=== PATIENT | male | born 1975 | race Hispanic/Latino ===

== ENCOUNTER 2017-04-08 11:39 | Emergency (ER) | payer OTHER ==
[2017-04-08 11:57] VITALS: BMI 46.1
[2017-04-08 12:03] VITALS: RESP 18; TEMP 98.5; O2SAT 96
[2017-04-08] MEDS ORDERED: Metoprolol 1 mg/ml Inj IVP STA (12:45)
--- NOTE | 2017-04-08 13:03 | ED PDOC ---
Arrival/HPI - General Chief Complaint: Headache Time Seen by Provider: 04/08/17 12:42 Historian: Patient - History of Present Illness Narrative History of Present Illness (Text): 04/08/17 12:24 41 year old male, with no history of migraines, presents to the Emergency department complaining of a headache for a couple of months. Patient reports he noticed his blood pressure was elevated since he began having headaches. Yesterday, his blood pressure was 201/138 and this morning is was 171/121. Patient also reports experiencing chest pain and tingling in left arm last night for 10 seconds. Patient also complains of chills, blurry vision, dizziness , and trouble keeping balance while walking. patient had a stress test done four days ago but has not yet received the results. Patient denies any neck pain , shortness of breath, nausea, vomiting, diarrhea, urinary symptoms, back pain, or any other complaints. Time/Duration: > month Symptom Onset: Gradual Symptom Course: Unchanged Context: Home Past Medical History - Provider Review Nursing Documentation Reviewed: Yes - Infectious Disease Hx of Infectious Diseases: None - Tetanus Immunization Tetanus Immunization: Unknown - Cardiac Hx Hypertension: Yes - Pulmonary Hx Tuberculosis: No - Neurological HX Cerebrovascular Accident: No Hx Seizures: No - HEENT Other/Comment: central serious retnopathy - Hematological/Oncological Hx Cancer: No - Genitourinary/Gynecological Hx Sexually Transmitted Diseases: No - Psychiatric Hx Anxiety: Yes Hx Depression: No Hx Emotional Abuse: No Hx Physical Abuse: No Hx Substance Use: No - Surgical History Other/Comment: spinal fusion c5-c7 (04/12/13) - Anesthesia Hx Anesthesia: Yes Hx Anesthesia Reactions: No Hx Malignant Hyperthermia: No - Suicidal Assessment Feels Threatened In Home Enviroment: No Family/Social History - Physician Review Nursing Documentation Reviewed: Yes Family/Social History: Unknown Family HX Smoking Status: Light Smoker < 10 Cigarettes Daily Hx Alcohol Use: Yes Frequency of alcohol use: Socially Hx Substance Use: No Hx Substance Use Treatment: No Allergies/Home Meds Allergies/Adverse Reactions: Allergies No Known Allergies Allergy (Verified 04/08/17 11:57) Home Medications: Home Meds Medication Instructions Recorded Confirmed Aspirin [Aspirin Chewable] 81 mg PO DAILY 04/04/17 04/08/17 DULoxetine [Cymbalta] 60 mg PO DAILY 04/04/17 04/08/17 Metoprolol Tartrate [Lopressor] 50 mg PO DAILY 04/04/17 04/08/17 Omeprazole 40 mg PO DAILY 04/04/17 04/08/17 Tramadol HCl [Ultram] 50 mg PO Q6H PRN 04/04/17 04/08/17 Review of Systems - Physician Review All systems were reviewed & negative as marked: Yes - Review of Systems Constitutional: Night Sweats Eyes: Vision Changes (blurry vision) Respiratory: absent: SOB Cardiovascular: Chest Pain Gastrointestinal: absent: Diarrhea, Nausea, Vomiting Musculoskeletal: absent: Neck Pain Neurological: Headache, Dizziness, Gait Changes Physical Exam Vital Signs Reviewed: Yes Vital Signs Temp Pulse Resp BP Pulse Ox 04/08/17 14:07 77 150/92 H 04/08/17 13:51 89 18 150/82 96 04/08/17 12:03 170/99 H 04/08/17 12:02 98.5 F 95 H 18 165/112 H 96 Temperature: Afebrile Blood Pressure: Hypertensive Pulse: Regular Respiratory Rate: Normal Appearance: Positive for: Well-Appearing, Non-Toxic, Comfortable, Other (obese) Pain Distress: None Mental Status: Positive for: Alert and Oriented X 3 - Systems Exam Head: Present: Atraumatic, Normocephalic Pupils: Present: PERRL Extroacular Muscles: Present: EOMI Neck: Present: Normal Range of Motion Respiratory/Chest: Present: Clear to Auscultation, Good Air Exchange. No: Respiratory Distress, Accessory Muscle Use Abdomen: Present: Normal Bowel Sounds. No: Tenderness, Distention, Peritoneal Signs, Mass/Organomegaly Lower Extremity: Present: Edema (bilateral trace pitting pedal edema) Neurological: Present: GCS=15, CN II-XII Intact, Speech Normal Psychiatric: Present: Alert, Oriented x 3, Normal Insight, Normal Concentration Medical Decision Making ED Course and Treatment: 04/08/17 12: 36 Impression: 41 year old male presents to the Emergency department complaining of headache and hypertension. Differential Diagnosis included but are not limited to: Hypertension induced headache Plan: -- CT scan of head without contrast -- EKG -- Labs -- Metoprolol -- IV fluids -- Reassess and disposition Progress Notes: 04/08/17 14:48 After IV Metoprolol, patient's repeat blood pressure is 150/92. Patient's headache is moderately improved, will give Tramadol and discharge. 04/08/17 14:[address] scan is negative. Lab work is overall normal, including negative Troponin, normal renal function, and no evidence of end organ damage. - Lab Interpretations Lab Results: 04/08/17 13:59 04/08/17 13:59 Lab Results 04/08/17 13:59: Sodium 141, Potassium 3.4 L, Chloride 104, Carbon Dioxide 31, Anion Gap 10, BUN 11, Creatinine 0.7 L, Est GFR ( Amer) > 60, Est GFR ( Non-Af Amer) > 60, Random Glucose 90, Calcium 8.6, Total Bilirubin 0.5, AST 65 H , ALT 87 H, Alkaline Phosphatase 65, Troponin I < 0.01, Total Protein 7.3, Albumin 4.1, Globulin 3.3, Albumin/Globulin Ratio 1.3 04/08/17 13:59: WBC 10.6, RBC 4.70, Hgb 13.2 L, Hct 40.9 L, MCV 87.0, MCH 28.1, MCHC 32.3, RDW 14.0, Plt Count 269, MPV 9.7, Gran % 62.5, Lymph % (Auto) 24.1, Stewart % (Auto) 4.7, Eos % (Auto) 8.1 H, Baso % (Auto) 0.6, Gran # 6.59 H, Lymph # 2.6, Stewart # 0.5, Eos # 0.9 H, Baso # 0.06 - RAD Interpretation Radiology Orders: 04/08/17 12:44 HEAD W/O CONTRAST [CT] Stat - Medication Orders Current Medication Orders: Discontinued Medications Metoprolol Tartrate (Lopressor) 5 mg IVP STAT STA Stop: 04/08/17 12:46 Last Admin: 04/08/17 14:07 Dose: 5 mg IVP Administration Document 04/08/17 14:07 OCS (Rec: 04/08/17 14:07 OCS [facility] [id number]) Charges for Administration # of IVP Administrations 1 MAR Pulse and Blood Pressure Document 04/08/17 14:07 OCS (Rec: 04/08/17 14:07 OCS [facility] [id number]) Pulse Pulse Rate (60-90) 77 Blood Pressure Blood Pressure (100/60-150/90) 150/92 Tramadol HCl (Ultram) 50 mg PO STAT STA Stop: 04/08/17 14:59 Last Admin: 04/08/17 15:15 Dose: 50 mg MAR Pain Assessment Document 04/08/17 15:15 OCS (Rec: 04/08/17 15:23 [place] [facility] [place] [facility] [id number] Pain Reassessment Is this a pain reassessment? Yes Sleep Is patient sleeping during reassessment? No Presence of Pain Presence of Pain Yes Pain Scale Used Pain Scale Used Numeric Location Pain Location Body Reducing System Operator Description Description Constant Intensity of Pain at present 7 - Scribe Statement The provider has reviewed the documentation as recorded by the Scribe Ruslan Painter All medical record entries made by the Scribe were at my direction and personally dictated by me. I have reviewed the chart and agree that the record accurately reflects my personal performance of the history, physical exam, medical decision making, and the department course for this patient. I have also personally directed, reviewed, and agree with the discharge instructions and disposition. Disposition/Present on Arrival - Present on Arrival Any Indicators Present on Arrival: No History of DVT/PE: No History of Uncontrolled Diabetes: No Urinary Catheter: No History of Decub. Ulcer: No History Surgical Site Infection Following: None - Disposition Have Diagnosis and Disposition been Completed?: Yes Diagnosis: Headache Disposition: HOME/ ROUTINE Disposition Time: 22:43 Patient Plan: Discharge Condition: GOOD Discharge Instructions (ExitCare): Hypertension (ED) Print Language: SERBIAN Additional Instructions: recheck BP in next 1 week Referrals: [facility] [place] [facility] [place] - Follow up with primary Forms: [employer] (Ukrainian)
--- NOTE | 2017-04-08 13:37 | CT ---
PROCEDURE: CT HEAD WITHOUT CONTRAST. HISTORY: ALICIA,elevated BP COMPARISON: None available. TECHNIQUE: Axial computed tomography images were obtained through the head/brain without intravenous contrast. Radiation dose: Total exam DLP = 846 mGy-cm. This CT exam was performed using one or more of the following dose reduction techniques: Automated exposure control, adjustment of the mA and/or kV according to patient size, and/or use of iterative reconstruction technique. FINDINGS: HEMORRHAGE: No intracranial hemorrhage. BRAIN: No mass effect or edema. No atrophy or chronic microvascular ischemic changes. VENTRICLES: Unremarkable. No hydrocephalus. CALVARIUM: Unremarkable. PARANASAL SINUSES: Unremarkable as visualized. No significant inflammatory changes. MASTOID AIR CELLS: Unremarkable as visualized. No inflammatory changes. OTHER FINDINGS: None. IMPRESSION: No acute findings
[2017-04-08 14:08] VITALS: BP 150/92; PULSE 77
[2017-04-08 14:13] LABS: BASO # 0.06 K/mm3 (0.0-2.0); BASO % 0.6 % (0.0-3.0); EOS # 0.9 (0.0-0.7); EOS % 8.1 % (1.5-5.0); GRAN # 6.59 (1.4-6.5); GRAN % 62.5 % (50.0-68.0); HEMOGLOBIN 13.2 g/dL (14.0-18.0); LYMPH # 2.6 (1.2-3.4); LYMPH % 24.1 % (22.0-35.0); MEAN CORPUSCULAR HEMOGLOBIN 28.1 pg (25.0-35.0); MEAN CORPUSCULAR HGB CONC 32.3 g/dl (31.0-37.0); MEAN PLATELET VOLUME 9.7 fl (7.0-11.0); MONO # 0.5 (0.1-0.6); MONO % 4.7 % (1.0-6.0); RBC 4.7 10^6/uL (3.5-6.1); WHITE BLOOD COUNT 10.6 10^3/ul (4.5-11.0)
[2017-04-08 14:23] LABS: ALB/GLOB RATIO 1.3 (1.1-1.8); ALBUMIN 4.1 g/dL (3.0-4.8); ALT/SGPT 87 U/L (7-56); AST/SGOT 65 U/L (17-59); BLOOD UREA NITROGEN 11 mg/dL (7-21); CALCIUM 8.6 mg/dL (8.4-10.5); GFR AFRICAN-AMERICAN > 60; GFR NON-AFRICAN AMERICAN > 60
[2017-04-08 14:34] LABS: TROPONIN I < 0.01 ng/mL
--- NOTE | 2017-04-08 17:37 | CARD ---
APPROVED REPORT EKG Measurement Heart [id number] <Conclusion> Normal sinus rhythm Normal ECG
== END 2017-04-08 15:15 | disposition home or self-care (01) ==
LOC: ED 11:39
DX: R51 Headache (principal); I10 Essential (primary) hypertension; F17.210 Nicotine dependence, cigarettes, uncomplicated

== ENCOUNTER 2018-02-01 21:44 | Observation (INO) | payer MEDICAID ==
[2018-02-01 21:45] VITALS: BMI 46.1
[2018-02-01] MEDS ORDERED: Sodium Chloride 0.9% 1,000 ML IV STA (23:05)
--- NOTE | 2018-02-01 23:07 | ED PDOC ---
Arrival/HPI <Carlton Doyle - Last Filed: 02/02/18 02:01> - History of Present Illness Narrative History of Present Illness (Text): 02/02/18 00:17 This is a 42 year old male with PMH of rectal fissure 5 years ago, HTN who presents with bright red blood per rectum tonight. Pt states that he had painless bright red blood per rectum which started at approximately 830 pm tonight and lasted about 20-30 minutes. Pt reports that he has had diffuse abdominal pain for the past few months, and bowel movements that contain "clear isaac liquid" at the end of defecation for the past 6 months. Pt also reports li ghtheadedness and dizziness for the past few months, with episodes of fainting approximately every night. Pt states that these symptoms have been worsening over the past few months. Denies recent travel, eating any new foods, association with food, v/d, dysuria, penile discharge. PMD: Suzette Myles Nephrology: [facility] PMH: rectal fissure 5 years ago, HTN PSH: rectal fissure repair 5 years ago, carpal tunnel repair 10 years ago, ACDF 5 years ago in c5-c7 Meds: see MAR Allx: NKDA Social hx: (+) smoking history, (+) etoh, (-) illicit drug use Sexual hx: 1 female partner in the past 6 months, does not use protection. Time/Duration: > month Symptom Onset: Gradual Symptom Course: Worsening <Val Rodriguezriy - Last Filed: 02/02/18 03:48> - General Chief Complaint: GI Problem Time Seen by Provider: 02/01/18 21:51 Past Medical History - Provider Review Nursing Documentation Reviewed: Yes - Infectious Disease Hx of Infectious Diseases: None - Tetanus Immunization Tetanus Immunization: Unknown - Cardiac Hx Cardiac Arrhythmia: Yes Hx Hypertension: Yes - Pulmonary Hx Tuberculosis: No - Neurological HX Cerebrovascular Accident: No Hx Seizures: No - HEENT Other/Comment: central serious retnopathy - Hematological/Oncological Hx Cancer: No - Musculoskeletal/Rheumatological Hx Back Pain: Yes Other/Comment: Spinaly surgery - Gastrointestinal Other/Comment: anal fissure - Genitourinary/Gynecological Hx Genitourinary Disorders: No Hx Sexually Transmitted Diseases: No - Psychiatric Hx Anxiety: Yes Hx Depression: No Hx Emotional Abuse: No Hx Physical Abuse: No Hx Substance Use: No - Surgical History Other/Comment: spinal fusion c5-c7 (04/12/13) - Anesthesia Hx Anesthesia: Yes Hx Anesthesia Reactions: No Hx Malignant Hyperthermia: No - Suicidal Assessment Feels Threatened In Home Enviroment: No <Louis Rodriguez Last Filed: 02/02/18 03:48> Family/Social History - Physician Review Nursing Documentation Reviewed: Yes Family/Social History: Unknown Family HX Smoking Status: Light Smoker < 10 Cigarettes Daily Hx Alcohol Use: Yes Hx Substance Use: No Hx Substance Use Treatment: No <Louis Rodriguez - Last Filed: 02/02/18 03:48> Allergies/Home Meds <Carlton Doyle - Last Filed: 02/02/18 02:01> <Louis Rodriguez Last Filed: 02/02/18 03:48> Allergies/Adverse Reactions: Allergies No Known Allergies Allergy (Verified 02/01/18 22:09) Home Medications: Home Meds Medication Instructions Recorded Confirmed Aspirin [Aspirin Chewable] 81 mg PO DAILY 04/04/17 04/08/17 DULoxetine [Cymbalta] 60 mg PO DAILY 04/04/17 04/08/17 Metoprolol Tartrate [Lopressor] 50 mg PO DAILY 04/04/17 04/08/17 Omeprazole 40 mg PO DAILY 04/04/17 04/08/17 Tramadol HCl [Ultram] 50 mg PO Q6H PRN 04/04/17 04/08/17 Review of Systems - Review of Systems Constitutional: Fatigue Eyes: Vision Changes Respiratory: SOB Cardiovascular: Chest Pain Gastrointestinal: Abdominal Pain, Stool Changes Genitourinary Male: Frequency Musculoskeletal: Arthralgias Skin: Rash (to the hands, which pmd is managing) Neurological: Dizziness Psychiatric: Depression <Louis Rodriguez - Last Filed: 02/02/18 03:48> Physical Exam Vital Signs Temp Pulse Resp BP Pulse Ox 02/02/18 01:38 96 H 19 122/82 98 02/01/18 22:05 98.4 F 109 H 18 116/79 96 <Carlton Doyle - Last Filed: 02/02/18 02:01> Vital Signs Temp Pulse Resp BP Pulse Ox 02/01/18 22:05 98.4 F 109 H 18 116/79 96 Temperature: Afebrile Blood Pressure: Normal Pulse: Tachycardic Respiratory Rate: Normal Appearance: Positive for: Non-Toxic Pain Distress: None Mental Status: Positive for: Alert and Oriented X 3 - Systems Exam Head: Present: Atraumatic, Normocephalic, Tenderness (mild tenderness to the right frontal scalp) Pupils: Present: PERRL Extroacular Muscles: Present: EOMI Conjunctiva: Present: Other (pallor) Mouth: Present: Moist Mucous Membranes Neck: Present: Normal Range of Motion Respiratory/Chest: Present: Clear to Auscultation. No: Respiratory Distress, Accessory Muscle Use, Wheezes, Rhonchi Cardiovascular: Present: Normal S1, S2, Tachycardic Abdomen: Present: Distention. No: Tenderness, Peritoneal Signs, Rebound, Guarding Rectal: Present: Occult Blood, Gross Blood (small amount of brb on glove), Hemorrhoids (external, nonbleeding), Normal Rectal Tone. No: Rectal Tenderness (discomfort on rectal examination), Fissures Genitourinary Male: Present: Normal External Genitalia. No: Penile Discharge, Testicle Tenderness, Penile Swelling, Masses, Erythema, Testicle Swelling Upper Extremity: Present: Normal Inspection, NORMAL PULSES Lower Extremity: Present: Edema (trace bilateral lower extremity edema), NORMAL PULSES. No: CALF TENDERNESS Neurological: Present: GCS=15, CN II-XII Intact, Motor Func Grossly Intact Skin: Present: Warm, Dry Psychiatric: Present: Alert, Oriented x 3 <Louis Rodriguez - Last Filed: 02/02/18 03:48> Medical Decision Making ED Course and Treatment: 02/02/18 01:59 42 y/o M presenting with sever rectal bleeding. In agreement with resident note, which includes further HPI details. Patient was seen and evaluated with resident, came up with plan and treatment together. - Lab Interpretations Lab Results: 02/01/18 22:21 02/01/18 22:21 Lab Results 02/01/18 22:21: PT 11.1, INR 0.97, APTT 28.2 02/01/18 22:21: Sodium 138, Potassium 4.2, Chloride 100, Carbon Dioxide 25, Anion Gap 17, BUN 21, Creatinine 0.9, Est GFR ( Amer) > 60, Est GFR (Non- Af Amer) > 60, Random Glucose 123 H, Calcium 9.9, Phosphorus 3.8, Magnesium 1.5 L, Total Bilirubin 0.3, AST 112 H D, ALT 125 H, Alkaline Phosphatase 61, Total Protein 7.5, Albumin 4.4, Globulin 3.1, Albumin/Globulin Ratio 1.4 02/01/18 22:21: WBC 11.7 H, RBC 4.64, Hgb 12.7 L, Hct 38.8 L, MCV 83.6 D, MCH 27.4, MCHC 32.7, RDW 14.4, Plt Count 376, MPV 10.0, Gran % 76.0 H, Lymph % (Auto) 18.5 L, Bryan % (Auto) 5.2, Eos % (Auto) 0.1 L, Baso % (Auto) 0.2, Gran # 8.90 H, Lymph # (Auto) 2.2, Bryan # (Auto) 0.6, Eos # (Auto) 0.0, Baso # (Auto) 0.02 - RAD Interpretation Narrative RAD Interpretations (Text): 02/02/18 01:58 CT of the abdomen and pelvis with contrast Clinical statement: Rectal bleeding. Technique: Multiple axial CT images were obtained from the base of the lungs through the floor of the pelvis utilizing 5 mm axial slices after administration of nonionic intravenous contrast. Coronal and sagittal reconstructions were also obtained. Comparison: None. Findings: Chest: The visualized lung bases are clear. Abdomen: The liver, spleen, pancreas, kidneys, gallbladder, and adrenal glands are unremarkable. The aorta is within normal limits. There is no evidence of abdominal lymphadenopathy or ascites. Pelvis: Mild fluid distention small bowel is noted with mild bowel wall thickening. The colon is unremarkable, with no obstructive or inflammatory changes. The appendix is normal. The urinary bladder is within normal limits. The other pelvic structures appear grossly intact. There is no evidence of pelvic lymphadenopathy or ascites. Bones: There are no suspicious osseous abnormalities seen. Impression: 1. The rectosigmoid colon appears grossly unremarkable. No evidence of bowel obstruction. 2. Mild small bowel enteritis. Electronically signed on Feb 02, 2018 1:56:17 AM EDT by: Trevor Juarez M.D., Certified by SONJA, MSK, Neuroradiology Radiology Orders: 02/02/18 00:15 ABDOMEN & PELVIS [ABD & PELVIS IV CONTRAST ONLY] [CT] Stat Travel Guide: Radiologist - Medication Orders Current Medication Orders: Discontinued Medications Sodium Chloride (Sodium Chloride 0.9%) 1,000 mls @ 999 mls/hr IV .Q1H1M STA Stop: 02/02/18 00:05 Last Admin: 02/02/18 00:06 Dose: 999 mls/hr eMAR Start Stop Document 02/02/18 00:06 RD (Rec: 02/02/18 00:06 RD [id number]) Intravenous Solution Start Date 02/02/18 Start Time 00:06 End Date 02/02/18 End time 01:06 Total Infusion Time 60 Sodium Chloride (Sodium Chloride 0.9%) 1,000 mls @ 999 mls/hr IV .Q1H1M STA Stop: 02/02/18 01:15 Magnesium Sulfate/Dextrose (Magnesium Sulfate 1 Gm/100 Ml D5w) 1 gm in 100 mls @ 100 mls/hr IVPB ONCE ONE Stop: 02/02/18 01:15 Last Admin: 02/02/18 01:39 Dose: 100 mls/hr eMAR Start Stop Document 02/02/18 01:39 RD (Rec: 02/02/18 01:40 RD [id number]) Intravenous Solution Start Date 02/02/18 Start Time 01:40 End Date 02/02/18 End time 02:40 Total Infusion Time 60 Metoclopramide HCl (Reglan) 10 mg IVP STAT STA Stop: 02/01/18 23:02 Last Admin: 02/02/18 00:04 Dose: 10 mg IVP Administration Document 02/02/18 00:04 RD (Rec: 02/02/18 00:06 RD [id number]) Charges for Administration # of IVP Administrations 1 Pantoprazole Sodium (Protonix Inj) 40 mg IVP STAT STA Stop: 02/01/18 23:01 Last Admin: 02/02/18 00:06 Dose: 40 mg IVP Administration Document 02/02/18 00:06 RD (Rec: 02/02/18 00:06 RD [id number]) Charges for Administration # of IVP Administrations 1 <Carlton Doyle - Last Filed: 02/02/18 02:01> ED Course and Treatment: 02/01/18 23:06 hemoocult positive. Reglan 10 mg IVP for nausea, NS IVF 1L bolus x2. CBC, CMP, coags. 02/02/18 00:[address] yMles, who will accept the pt. Pt placed NPO. Dr. Myles requests GI consult, Dr. Donohue. Abdominal CT with IV contrast ordered. - Lab Interpretations I have reviewed the lab results: Yes - Medication Orders Current Medication Orders: Discontinued Medications Metoclopramide HCl (Reglan) 10 mg IVP STAT STA Stop: 02/01/18 23:02 Pantoprazole Sodium (Protonix Inj) 40 mg IVP STAT STA Stop: 02/01/18 23:01 <Louis Rodriguez - Last Filed: 02/02/18 03:48> - PA / SCREEN PRINTING PASTER / Resident Statement MD/ has reviewed & agrees with the documentation as recorded. MD/ has examined the patient and agrees with the treatment plan. - Scribe Statement The provider has reviewed the documentation as recorded by the Varun Hale All medical record entries made by the Rickeyibian were at my direction and personally dictated by me. I have reviewed the chart and agree that the record accurately reflects my personal performance of the history, physical exam, medical decision making, and the department course for this patient. I have also personally directed, reviewed, and agree with the discharge instructions and disposition. <Carlton Doyle - Last Filed: 02/02/18 02:01> Disposition/Present on Arrival <Carlton Doyle - Last Filed: 02/02/18 02:01> - Present on Arrival Any Indicators Present on Arrival: No History of DVT/PE: No History of Uncontrolled Diabetes: No Urinary Catheter: No History of Decub. Ulcer: No History Surgical Site Infection Following: None - Disposition Have Diagnosis and Disposition been Completed?: Yes Disposition Time: 00:25 Patient Plan: Observation <Louis Rodriguez - Last Filed: 02/02/18 03:48> - Disposition Diagnosis: Gastrointestinal bleed Disposition: HOSPITALIZED Condition: GUARDED
[2018-02-01 23:17] LABS: BASO # 0.02 K/mm3 (0.0-2.0); BASO % 0.2 % (0.0-3.0); EOS % 0.1 % (1.5-5.0); GRAN # 8.9 (1.4-6.5); HEMOGLOBIN 12.7 g/dL (14.0-18.0); LYMPH # 2.2 (1.2-3.4); LYMPH % 18.5 % (22.0-35.0); MEAN CELL VOLUME 83.6 fl (80.0-105.0); MEAN CORPUSCULAR HEMOGLOBIN 27.4 pg (25.0-35.0); MEAN CORPUSCULAR HGB CONC 32.7 g/dl (31.0-37.0); MONO # 0.6 (0.1-0.6); MONO % 5.2 % (1.0-6.0); RBC 4.64 10^6/uL (3.5-6.1); RED CELL DISTRIBUTION WIDTH 14.4 % (11.5-14.5); WHITE BLOOD COUNT 11.7 10^3/uL (4.5-11.0)
[2018-02-01 23:24] LABS: INR 0.97; PARTIAL THROMBOPLASTIN TIME 28.2 Seconds (25.1-36.5); PROTHROMBIN TIME 11.1 SECONDS (9.4-12.5)
[2018-02-01 23:39] LABS: ALB/GLOB RATIO 1.4 (1.1-1.8); ALBUMIN 4.4 g/dL (3.0-4.8); ALT/SGPT 125 U/L (7-56); AST/SGOT 112 U/L (17-59); BLOOD UREA NITROGEN 21 mg/dL (7-21); CALCIUM 9.9 mg/dL (8.4-10.5); GFR NON-AFRICAN AMERICAN > 60
[2018-02-02] MEDS ORDERED: Sodium Chloride 0.9% 1,000 ML IV STA (00:15)
[2018-02-02] MEDS ORDERED: Magnesium Sulfate 1 gm in D5W 1 GM/100 ML BAG IVPB ONE (00:16)
[2018-02-02] MEDS ORDERED: Influenza Vaccine 60 mcg/0.5 mL SYR (4YR UP) IM ONE (02:40)
[2018-02-02] MEDS ORDERED: Pneumococcal 23-Valent Vaccine IM ONE (02:40)
--- NOTE | 2018-02-02 08:08 | CP.PCM.CON ---
<Steve Horn Kathia - Last Filed: 02/02/18 11:35> History of Present Illness - History of Present Illness History of Present Illness: PGY-2 GI consult note for Dr Donohue. Mr Nance is a 42 year old male with PMHx of rectal fissure 5 years ago, HTN who presents with bright red blood per rectum. Pt states that he had painless bright red blood per rectum which started at approximately 830 pm tonight and lasted about 20-30 minutes. He stated he was lying in bed and when he got up he noticed the sheets were covered in blood. Pt reports that he has had diffuse abdominal pain for the past few months, and bowel movements that contain "clear isaac liquid" at the end of defecation for the past 6 months. Pt also reports lightheadedness and dizziness for the past few months. Pt states that these symptoms have been worsening over the past few months. Also endorsed arthralgias for past 6 months. Had an appt with director of sustainability, Dr Greer today. Denies recent travel, eating any new foods, association with food, v/d, dysuria, penile discharge. PMD: Suzette Myles Nephrology: [facility] PMH: rectal fissure 5 years ago, HTN PSH: rectal fissure repair 5 years ago (colonoscopy at that time in [facility]), carpal tunnel repair 10 years ago, ACDF 5 years ago in c5-c7 Meds: see MAR Allx: NKDA Social hx: (+) smoking history, (+) etoh, (-) illicit drug use Sexual hx: 1 female partner in the past 6 months, does not use protection. FamHx: strong cancer hx - mother with pancreatic cancer, father with unknown can cer, grandparents with cancer Code Status: Full Code Review of Systems - Constitutional Constitutional: Fatigue, Headache, Lethargy. absent: Chills, Fever - EENT Eyes: absent: Change in Vision - Cardiovascular Cardiovascular: absent: Chest Pain, Chest Pain with Activity - Respiratory Respiratory: absent: Cough, Dyspnea, Hemoptysis - Gastrointestinal Gastrointestinal: Abdominal Pain, Change in Bowel Habits, Diarrhea, Hematochezia, Nausea. absent: Hematemesis - Genitourinary Genitourinary: absent: Dysuria - Musculoskeletal Musculoskeletal: Neck Pain - Neurological Neurological: Dizziness, Weakness Past Patient History - Infectious Disease Hx of Infectious Diseases: None - Tetanus Immunizations Tetanus Immunization: Unknown - Past Social History Smoking Status: Light Smoker < 10 Cigarettes Daily - CARDIAC Hx Cardia Arrhythmia: Yes Hx Hypertension: Yes - PULMONARY Hx Tuberculosis: No - NEUROLOGICAL HX Cerebrovascular Accident: No Hx Seizures: No - HEENT Other/Comment: central serious retnopathy - HEMATOLOGICAL/ONCOLOGICAL Hx Cancer: No - MUSCULOSKELETAL/RHEUMATOLOGICAL Hx Back Pain: Yes Other/Comment: Spinaly surgery - GASTROINTESTINAL Other/Comment: anal fissure - GENITOURINARY/GYNECOLOGICAL Hx Genitourinary Disorders: No Hx Sexually Transmitted Disorders: No - PSYCHIATRIC Hx Anxiety: Yes Hx Depression: No Hx Emotional Abuse: No Hx Physical Abuse: No Hx Substance Use: No - SURGICAL HISTORY Other/Comment: spinal fusion c5-c7 (04/12/13) - ANESTHESIA Hx Anesthesia: Yes Hx Anesthesia Reactions: No Hx Malignant Hyperthermia: No Meds Allergies/Adverse Reactions: Allergies Allergy/AdvReac Type Severity Reaction Status Date / Time No Known Allergies Allergy Verified 02/01/18 22:09 Physical Exam - Constitutional Appears: Well, Non-toxic, No Acute Distress - Head Exam Head Exam: ATRAUMATIC, NORMAL INSPECTION - Eye Exam Eye Exam: EOMI, Normal appearance, PERRL. absent: Scleral icterus - ENT Exam ENT Exam: Mucous Membranes Moist - Neck Exam Neck exam: Positive for: Normal Inspection. Negative for: Tenderness - Respiratory Exam Respiratory Exam: Clear to Auscultation Bilateral. absent: Rales, Rhonchi, Wheezes - Cardiovascular Exam Cardiovascular Exam: REGULAR RHYTHM, +S1, +S2. absent: JVD, Systolic Murmur - GI/Abdominal Exam GI & Abdominal Exam: Normal Bowel Sounds, Soft. absent: Distended, Firm, Guarding, Hernia, Tenderness - Rectal Exam Additional comments: Performed in ED by ED resident: Occult Blood, Gross Blood (small amount of brb on glove), Hemorrhoids (external, nonbleeding), Normal Rectal Tone - Extremities Exam Extremities exam: Positive for: normal inspection. Negative for: calf tenderness - Neurological Exam Neurological exam: Alert, Oriented x3 - Skin Skin Exam: Normal Color, Warm Results - Vital Signs Recent Vital Signs: Last Vital Signs Temp 98.4 F 02/01/18 22:05 Pulse 96 H 02/02/18 01:38 Resp 20 02/02/18 02:12 BP 122/82 02/02/18 01:38 Pulse Ox 98 02/02/18 01:38 - Labs Result Diagrams: 02/02/18 10:30 02/01/18 22:21 Labs: Laboratory Results - last 24 hr 02/01/18 02/01/18 02/01/18 22:21 22:21 22:21 WBC 11.7 H RBC 4.64 Hgb 12.7 L Hct 38.8 L MCV 83.6 D MCH 27.4 MCHC 32.7 RDW 14.4 Plt Count 376 MPV 10.0 Gran % 76.0 H Lymph % (Auto) 18.5 L Luna % (Auto) 5.2 Eos % (Auto) 0.1 L Baso % (Auto) 0.2 Gran # 8.90 H Lymph # (Auto) 2.2 Luna # (Auto) 0.6 Eos # (Auto) 0.0 Baso # (Auto) 0.02 PT 11.1 INR 0.97 APTT 28.2 Sodium 138 Potassium 4.2 Chloride 100 Carbon Dioxide 25 Anion Gap 17 BUN 21 Creatinine 0.9 Est GFR ( Amer) > 60 Est GFR (Non-Af Amer) > 60 Random Glucose 123 H Calcium 9.9 Phosphorus 3.8 Magnesium 1.5 L Total Bilirubin 0.3 AST 112 H D ALT 125 H Alkaline Phosphatase 61 Total Protein 7.5 Albumin 4.4 Globulin 3.1 Albumin/Globulin Ratio 1.4 Assessment & Plan - Assessment and Plan (Free Text) Plan: Mr Nance is a 42 year old male with PMH of rectal fissure 5 years ago, HTN who presents with bright red blood per rectum: Hematochezia -hemoccult positive -hgb 12.7 on admission -CT abd/pelvis w/ iv contrast: * 1. The rectosigmoid colon appears grossly unremarkable. No evidence of bowel obstruction. 2. Mild small bowel enteritis. -f/u hepatits panel -protonix 40mg ivp q12h -plan for EGD today -keep npo for now Prior GI procedures: -colonoscopy 5 years ago in [facility] Case discussed with Dr Donohue. <Bianka Donohue V - Last Filed: 02/02/18 23:01> Meds - Medications Medications: Current Medications Acetaminophen/Butalbital/Caffeine (Fioricet) 1 tab PO DAILY [facility] Alprazolam (Xanax) 1 mg PO TID [facility] Amlodipine Besylate (Norvasc) 10 mg PO DAILY [facility] Last Admin: 02/02/18 17:44 Dose: 10 mg Ascorbic Acid (Vitamin C 500 Mg Tab) 500 mg PO DAILY [facility] Last Admin: 02/02/18 17:44 Dose: 500 mg Bisacodyl (Dulcolax) 10 mg PO ONCE ONE Stop: 02/03/18 18:01 Duloxetine HCl (Cymbalta) 60 mg PO HS [facility] Last Admin: 02/02/18 21:32 Dose: 60 mg Home Med (Home Med) 1 unit PO DAILY [facility] Magnesium Oxide (Mag-Ox) 400 mg PO DAILY [facility] Last Admin: 02/02/18 17:44 Dose: 400 mg Nicotine (Nicoderm Cq) 1 patch TD DAILY [facility] Last Admin: 02/02/18 22:24 Dose: 1 patch Oxycodone HCl (Oxycodone Immediate Release Tab) 20 mg PO TID PRN PRN Reason: Pain, severe (8-10) Last Admin: 02/02/18 20:34 Dose: 20 mg Pantoprazole Sodium (Protonix Ec Tab) 40 mg PO DAILY [facility] Last Admin: 02/02/18 12:17 Dose: Not Given Polyethylene Glycol/Electrolytes (Golytely) 4,000 ml PO ONCE ONE Stop: 02/03/18 14:01 Quetiapine Fumarate (Seroquel) 50 mg PO HS [facility] Last Admin: 02/02/18 21:33 Dose: 50 mg Zolpidem Tartrate (Ambien) 10 mg PO HS PRN; Protocol PRN Reason: Insomnia Last Admin: 02/02/18 22:24 Dose: 10 mg Results - Vital Signs Recent Vital Signs: Last Vital Signs Temp 98.4 F 02/02/18 22:35 Pulse 94 H 02/02/18 22:35 Resp 18 02/02/18 22:35 BP 151/99 H 02/02/18 22:35 Pulse Ox 96 02/02/18 22:35 - Labs Result Diagrams: 02/02/18 10:30 02/01/18 22:21 Labs: Laboratory Results - last 24 hr 02/01/18 02/01/18 02/01/18 22:21 22:21 22:21 WBC 11.7 H RBC 4.64 Hgb 12.7 L Hct 38.8 L MCV 83.6 D MCH 27.4 MCHC 32.7 RDW 14.4 Plt Count 376 MPV 10.0 Gran % 76.0 H Lymph % (Auto) 18.5 L Luna % (Auto) 5.2 Eos % (Auto) 0.1 L Baso % (Auto) 0.2 Gran # 8.90 H Lymph # (Auto) 2.2 Luna # (Auto) 0.6 Eos # (Auto) 0.0 Baso # (Auto) 0.02 PT 11.1 INR 0.97 APTT 28.2 Sodium 138 Potassium 4.2 Chloride 100 Carbon Dioxide 25 Anion Gap 17 BUN 21 Creatinine 0.9 Est GFR ( Amer) > 60 Est GFR (Non-Af Amer) > 60 Random Glucose 123 H Calcium 9.9 Phosphorus 3.8 Magnesium 1.5 L Total Bilirubin 0.3 AST 112 H D ALT 125 H Alkaline Phosphatase 61 Total Protein 7.5 Albumin 4.4 Globulin 3.1 Albumin/Globulin Ratio 1.4 Hepatitis A IgM Ab Hep Bs Antigen Hep B Core IgM Ab Hepatitis C Antibody Blood Type Antibody Screen BBK History Checked 02/02/18 02/02/18 02/02/18 08:45 10:30 10:30 WBC RBC Hgb 11.7 L Hct 36.1 L MCV MCH MCHC RDW Plt Count MPV Gran % Lymph % (Auto) Luna % (Auto) Eos % (Auto) Baso % (Auto) Gran # Lymph # (Auto) Luna # (Auto) Eos # (Auto) Baso # (Auto) PT INR APTT Sodium Potassium Chloride Carbon Dioxide Anion Gap BUN Creatinine Est GFR ( Amer) Est GFR (Non-Af Amer) Random Glucose Calcium Phosphorus Magnesium Total Bilirubin AST ALT Alkaline Phosphatase Total Protein Albumin Globulin Albumin/Globulin Ratio Hepatitis A IgM Ab Negative Hep Bs Antigen Negative Hep B Core IgM Ab Negative Hepatitis C Antibody Negative Blood Type A POSITIVE Antibody Screen Negative BBK History Checked Patient has bt Attending/Attestation - Attestation I have personally seen and examined this patient.: Yes I have fully participated in the care of the patient.: Yes I have reviewed all pertinent clinical information: Yes Notes (Text): This is an addendum to GI consult report dictated by the Facilities Project Manager.The patient was seen and evaluated earlier. Medical records, lab studies, imagings were reviewed. Last 24 hours events reviewed. Agreed with the above treatment plan as outlined in Facilities Project Manager 's notes with the addition of the following Admitted with bleeding per rectum On examination patient also had tenderness in the epigastric area Followup on hb for EGD today informed consent was obtained for EGD 02/02/18 23:01
--- NOTE | 2018-02-02 09:59 | CT ---
Date of service: 02/02/2018 PROCEDURE: CT Abdomen and Pelvis with and without intravenous contrast HISTORY: rectal bleeding, white count COMPARISON: None. TECHNIQUE: Axial images of the abdomen were obtained in the pre contrast, portal venous and delayed phases of enhancement. Coronal and sagittal reformats were generated. Contrast dose: Radiation dose: Total exam DLP = 2198.21 mGy-cm. This CT exam was performed using one or more of the following dose reduction techniques: Automated exposure control, adjustment of the mA and/or kV according to patient size, and/or use of iterative reconstruction technique. FINDINGS: LOWER THORAX: Unremarkable. LIVER: Fatty liver. 5 millimeter enhancing focus in the right hepatic lobe likely representing a tiny arteriovenous malformation. GALLBLADDER AND BILE DUCTS: Unremarkable. PANCREAS: Unremarkable. No gross lesion or ductal dilatation. SPLEEN: Unremarkable. ADRENALS: Unremarkable. No mass. KIDNEYS AND URETERS: Small measuring up to 11 millimeters. Probable left renal cysts. No hydronephrosis. No solid mass. VASCULATURE: Unremarkable. No aortic aneurysm. No aortic atherosclerotic calcification or mural plaque present. BOWEL: Unremarkable. No obstruction. No gross mural thickening. APPENDIX: Normal appendix. PERITONEUM: Unremarkable. No free fluid. No free air. LYMPH NODES: Unremarkable. No enlarged lymph nodes. BLADDER: Unremarkable. REPRODUCTIVE: Unremarkable. BONES: No acute fracture. OTHER FINDINGS: None. IMPRESSION: No acute pathology.
[2018-02-02 10:41] LABS: HEMOGLOBIN 11.7 g/dL (14.0-18.0)
[2018-02-02] MEDS ORDERED: BUTALBITAL PO SCH (12:00)
[2018-02-02] MEDS: Pantoprazole 40 mg EC Tab PO SCH (12:17)
[2018-02-02] MEDS ORDERED: Sodium Chloride 0.9% 1,000 ML IV SCH (14:30)
[2018-02-02] MEDS ORDERED: Propofol 10 mg/ml Inj (20 ML) ONE ×2 (15:03→15:41)
[2018-02-02] MEDS: Magnesium Oxide 400 mg Tab UD PO SCH (17:44)
[2018-02-02 18:24] LABS: HEPATITIS B SURFACE AG Negative (NEGATIVE)
[2018-02-02 18:30] LABS: HEPATITIS A IGM NEGATIVE (NEGATIVE); HEPATITIS B CORE AB NEGATIVE (NEGATIVE)
[2018-02-02 18:42] LABS: HEPATITIS C ANTIBODY NEGATIVE (NEGATIVE)
[2018-02-02] MEDS: oxyCODONE 20 mg Immediate Release Tab PO PRN (20:34)
[2018-02-03 07:58] LABS: HEMOGLOBIN 12.8 g/dL (14.0-18.0); MEAN CELL VOLUME 84.3 fl (80.0-105.0); MEAN CORPUSCULAR HEMOGLOBIN 27.5 pg (25.0-35.0); MEAN CORPUSCULAR HGB CONC 32.6 g/dl (31.0-37.0); MEAN PLATELET VOLUME 9.5 fl (7.0-11.0); RBC 4.66 10^6/uL (3.5-6.1); RED CELL DISTRIBUTION WIDTH 14.5 % (11.5-14.5); WHITE BLOOD COUNT 8.4 10^3/uL (4.5-11.0)
[2018-02-03 08:16] LABS: ALB/GLOB RATIO 1.3 (1.1-1.8); ALBUMIN 3.7 g/dL (3.0-4.8); ALT/SGPT 91 U/L (7-56); AST/SGOT 52 U/L (17-59); BLOOD UREA NITROGEN 16 mg/dL (7-21); CALCIUM 9.1 mg/dL (8.4-10.5); GFR NON-AFRICAN AMERICAN > 60
[2018-02-03] MEDS: Apap-Butalbital-Caffeine 325-50-40mg Tab PO SCH (09:43)
[2018-02-03] MEDS: Magnesium Oxide 400 mg Tab UD PO SCH (09:44)
[2018-02-03] MEDS: Pantoprazole 40 mg EC Tab PO SCH (09:45)
[2018-02-03] MEDS: oxyCODONE 20 mg Immediate Release Tab PO PRN ×3 (09:53→22:39)
[2018-02-03] MEDS ORDERED: DICLOFENAC PO SCH (10:00)
--- NOTE | 2018-02-03 13:20 | HP ---
HISTORY OF PRESENT ILLNESS: The patient is a 42-year-old male who presented to the emergency room with bright red blood per rectum. The patient has a history of anal fissures and internal hemorrhoids, however, never in the past has he experienced sudden onset of bright red blood per rectum without attempting defecation. The patient states he was normally just walking around and felt moist and noted bright red blood, therefore presented to the emergency room. PAST MEDICAL HISTORY: He is known to have a history of anxiety and depression in the past. He has a history of internal hemorrhoids, rectal fissure, hypertension which has been difficult to manage recently. He complains of job stress. He is status post back surgery. SOCIAL HISTORY: He smokes 1-2 packs of cigarettes a day. Drinks alcohol occasionally, is single but lives with a girlfriend. ALLERGIES: HE HAS NO KNOWN MEDICAL ALLERGIES. MEDICATIONS: Include aspirin 81 mg a day, Cymbalta 60 mg daily, metoprolol tartrate 50 mg daily, omeprazole 40 mg and tramadol 50 mg p.o. every 6 hours p.r.n. REVIEW OF SYSTEMS: Otherwise unremarkable. PHYSICAL EXAMINATION: VITAL SIGNS: His blood pressure is 116/79, heart rate is 109 and he is afebrile at 98.4 degrees Fahrenheit. GENERAL: He is awake, alert and oriented. Examination of the head, eyes, ears, nose and throat is unremarkable. NECK: Supple with no lymphadenopathy, no goiter. LUNGS: Clear to auscultation and percussion. HEART: Regular. No murmur is appreciated. ABDOMEN: Soft, nontender. No organomegaly is appreciated. Rectal exam is positive for gross blood. EXTREMITIES: Free of cyanosis, clubbing or edema. NEUROLOGICAL: The patient is awake, alert and oriented with no focal neurological signs. LABORATORY STUDIES: Show the white blood cell count to be 11.7, hemoglobin and hematocrit are 12.7 and 38.8, platelet count is 376. Serum chemistries are unremarkable with a sodium of 138, potassium 4.2, BUN 21, creatinine 0.9, glucose is 123. CAT scan of the abdomen was performed, which was unremarkable. So the patient is admitted with bright red blood per rectum, active GI bleed. Consultation from Dr. Donohue is requested. The patient will be reevaluated in the morning. Of note, the patient was seen by Dr. Donohue and underwent esophagogastroduodenoscopy, which showed erosive gastritis and duodenitis with Ramos's esophagitis. His hemoglobin dropped from 12.7 on admission to 11.7 the following morning, therefore, arrangements were made for him to undergo colonoscopy on 02/04/2018. Sergei Myles MD
--- NOTE | 2018-02-03 13:51 | CP.PCM.PN ---
<Phil Dyer - Last Filed: 02/03/18 14:12> Subjective - Date & Time of Evaluation Date of Evaluation: 02/03/18 Time of Evaluation: 13:00 - Subjective Subjective: PGY-4 GI Fellow Consult Note Pt sitting up in bed when seen today. States 1 episode of BRBPR. No abd pain, nor melena. Eager for colon prep. 5 point ROS negative other than stated above Objective - Vital Signs/Intake and Output Vital Signs (last 24 hours): Temp Pulse Resp BP Pulse Ox 97.6 F 82 20 139/92 H 95 02/03/18 08:03 02/03/18 08:03 02/03/18 08:03 02/03/18 09:44 02/03/18 08:03 - Medications Medications: Current Medications Acetaminophen/Butalbital/Caffeine (Fioricet) 1 tab PO DAILY [facility] Last Admin: 02/03/18 09:43 Dose: 1 tab Alprazolam (Xanax) 1 mg PO TID [facility] Last Admin: 02/03/18 09:44 Dose: 1 mg Amlodipine Besylate (Norvasc) 10 mg PO DAILY [facility] Last Admin: 02/03/18 09:44 Dose: 10 mg Aripiprazole (Abilify) 2.5 mg PO [facility] Ascorbic Acid (Vitamin C 500 Mg Tab) 500 mg PO DAILY [facility] Last Admin: 02/03/18 09:45 Dose: 500 mg Bisacodyl (Dulcolax) 10 mg PO ONCE ONE Stop: 02/03/18 18:01 Duloxetine HCl (Cymbalta) 40 mg PO DAILY [facility] Last Admin: 02/03/18 12:25 Dose: 40 mg Home Med (Home Med) 1 unit PO DAILY [facility] Last Admin: 02/03/18 12:25 Dose: 1 unit Magnesium Oxide (Mag-Ox) 400 mg PO DAILY [facility] Last Admin: 02/03/18 09:44 Dose: 400 mg Nicotine (Nicoderm Cq) 1 patch TD DAILY [facility] Last Admin: 02/03/18 09:43 Dose: 1 patch Oxycodone HCl (Oxycodone Immediate Release Tab) 20 mg PO TID PRN PRN Reason: Pain, severe (8-10) Last Admin: 02/03/18 09:53 Dose: 20 mg Pantoprazole Sodium (Protonix Ec Tab) 40 mg PO DAILY [facility] Last Admin: 02/03/18 09:45 Dose: 40 mg Polyethylene Glycol/Electrolytes (Golytely) 4,000 ml PO ONCE ONE Stop: 02/03/18 14:01 Venlafaxine HCl (Effexor) 37.5 mg PO DAILY [facility] Last Admin: 02/03/18 12:25 Dose: 37.5 mg Zaleplon (Sonata) 5 mg PO HS PRN PRN Reason: Insomnia - Labs Labs: 02/03/18 07:40 02/03/18 07:40 PT 11.1 SECONDS (9.4-12.5) 02/01/18 22:21 INR 0.97 02/01/18 22:21 APTT 28.2 Seconds (25.1-36.5) 02/01/18 22:21 - Constitutional Appears: Well, No Acute Distress - Head Exam Head Exam: ATRAUMATIC, NORMAL INSPECTION - Eye Exam Eye Exam: EOMI. absent: Scleral icterus - ENT Exam ENT Exam: Mucous Membranes Moist, Normal External Ear Exam. absent: Mucous Membranes Dry - Respiratory Exam Respiratory Exam: NORMAL BREATHING PATTERN. absent: Accessory Muscle Use, Respiratory Distress - GI/Abdominal Exam GI & Abdominal Exam: Soft, Normal Bowel Sounds. absent: Bruit, Distended, Firm, Guarding, Rigid, Tenderness, Hernia, Mass, Organomegaly Assessment and Plan - Assessment and Plan (Free Text) Assessment: 42 year old male with PMH of rectal fissure 5 years ago, HTN who presents with bright red blood per rectum: # Painless Hematochezia: Perhaps related to diverticulosis, hemorrhoid or AVMs. CT abd/pelvis w/ IV contrast with mild enteritis and no signs of large mass. EGD with no source of bleed, only with possible Forrest's and gastritis. 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 On PPI. Biopsies pending. Plan: - CSPY on 02/04/18 --- Risks, benefits, alternatives discussed with pt who wishes to proceed. --- Consent signed and in chart -Clear Liq Diet today -Golytely prep tonight -NPO except meds after midnight -Cont PO PPI daily -F/u EGD path results Case discussed with Dr Donohue. See attestation for further recs/changes. <Jayde,Kopadmini V - Last Filed: 02/04/18 00:24> Objective - Vital Signs/Intake and Output Vital Signs (last 24 hours): Temp Pulse Resp BP Pulse Ox 98.4 F 100 H 18 136/98 H 95 02/03/18 23:07 02/03/18 23:07 02/03/18 23:07 02/03/18 23:07 02/03/18 23:07 Intake and Output: 02/03/18 02/04/18 18:59 06:59 Intake Total 600 Balance 600 - Medications Medications: Current Medications Acetaminophen/Butalbital/Caffeine (Fioricet) 1 tab PO DAILY [facility] Last Admin: 02/03/18 09:43 Dose: 1 tab Alprazolam (Xanax) 1 mg PO TID [facility] Last Admin: 02/03/18 17:41 Dose: 1 mg Amlodipine Besylate (Norvasc) 10 mg PO DAILY [facility] Last Admin: 02/03/18 09:44 Dose: 10 mg Aripiprazole (Abilify) 2.5 mg PO [facility] Last Admin: 02/03/18 21:35 Dose: 2.5 mg Ascorbic Acid (Vitamin C 500 Mg Tab) 500 mg PO DAILY [facility] Last Admin: 02/03/18 09:45 Dose: 500 mg Duloxetine HCl (Cymbalta) 40 mg PO DAILY [facility] Last Admin: 02/03/18 12:25 Dose: 40 mg Home Med (Home Med) 1 unit PO TID [facility] Last Admin: 02/03/18 17:42 Dose: 1 unit Magnesium Oxide (Mag-Ox) 400 mg PO DAILY [facility] Last Admin: 02/03/18 09:44 Dose: 400 mg Nicotine (Nicoderm Cq) 1 patch TD DAILY [facility] Last Admin: 02/03/18 09:43 Dose: 1 patch Oxycodone HCl (Oxycodone Immediate Release Tab) 20 mg PO TID PRN PRN Reason: Pain, severe (8-10) Last Admin: 02/03/18 22:39 Dose: 20 mg Pantoprazole Sodium (Protonix Ec Tab) 40 mg PO DAILY [facility] Last Admin: 02/03/18 09:45 Dose: 40 mg Venlafaxine HCl (Effexor) 37.5 mg PO DAILY [facility] Last Admin: 02/03/18 12:25 Dose: 37.5 mg Zaleplon (Sonata) 5 mg PO HS PRN PRN Reason: Insomnia - Labs Labs: 02/03/18 07:40 02/03/18 07:40 PT 11.1 SECONDS (9.4-12.5) 02/01/18 22:21 INR 0.97 02/01/18 22:21 APTT 28.2 Seconds (25.1-36.5) 02/01/18 22:21 Attending/Attestation - Attestation I have personally seen and examined this patient.: Yes I have fully participated in the care of the patient.: Yes I have reviewed all pertinent clinical information, including history, physical exam and plan: Yes Notes (Text): This is an addendum to GI progress report dictated by the GI Fellow.The patient was seen and examined earlier. Medical records, lab studies, imagings were reviewed. Last 24 hours events reviewed. Agreed with the above treatment plan as outlined in GI Fellow 's notes with the addition of the following No further episodes of significant bleeding Status post EGD On examination soft non-tender Patient is being prepared for colonoscopy in AM 02/04/18 00:20
[2018-02-03] MEDS ORDERED: Peg-Electrolyte Oral Soln 4L (Golytely) PO ONE (14:00)
[2018-02-03] MEDS: DICLOFENAC SODIUM 50 MG PO SCH (17:42)
[2018-02-03] MEDS ORDERED: Bisacodyl 5mg EC Tab PO ONE (18:00)
[2018-02-04 00:56] LABS: TROPONIN I < 0.01 ng/mL
[2018-02-04 00:59] LABS: ALB/GLOB RATIO 1.3 (1.1-1.8); ALT/SGPT 95 U/L (7-56); AST/SGOT 57 U/L (17-59); BLOOD UREA NITROGEN 12 mg/dL (7-21); CALCIUM 9.1 mg/dL (8.4-10.5); GFR NON-AFRICAN AMERICAN > 60
--- NOTE | 2018-02-04 05:00 | CON ---
DATE: 02/03/2018 HISTORY OF PRESENT ILLNESS: In short, the patient is a 42-year-old male with reported history of depression. The patient was admitted on the medical site for evaluation of lower GI bleed. Psych consult was called for evaluation of depressive symptoms and the patient requested to talk to psychiatrist in order to adjust medications. The patient was seen and examined today. The patient presented to be alert. The patient reported that he was prescribed Ambien last night and he was not feeling good. The patient reported that he had very vivid dreams. The patient is not aware who started Seroquel for him. The patient reported that he was on Cymbalta 60 mg for years as well as Xanax 1 mg three times a day. The patient reported that he was discharged from [facility] where he was admitted for depressive symptoms under voluntary status. Since that time, the patient was trying to find a psychiatrist to follow up. The patient reported that Dr. Jl Gimenez was not able to see him because he does not accept the patient's insurance. The patient reported that he tried to obtain a followup appointment at [facility], but they have no opening any time recently. The patient reported that he feels depressed, hopeless and helpless, but denied any thoughts of harming himself. The patient reported that he is frustrated over medical issues and he was feeling down and depressed for a while. The patient denied any previous suicidal attempts. The patient was willing to adjust his medications. MEDICATIONS: Reviewed. The patient is on Fioricet, Xanax 1 mg three times a day, and Norvasc 10 mg daily. Abilify was started 2.5 mg at nighttime for mood stabilization. Seroquel will be discontinued because of side effects profile and possible metabolic syndrome. Vitamin C. The patient is on Dulcolax. Cymbalta 40 mg will be started, 60 mg discontinued. He is on magnesium oxide, Nicoderm, oxycodone, Protonix, and Effexor will be started to 37.5 mg daily. The patient is on Sonata as needed for insomnia. PHYSICAL EXAMINATION: VITAL SIGNS: Reviewed. Temperature 97.6, pulse of 82, blood pressure 139/92, respirations 20 and oxygen saturation is 95. MENTAL STATUS EXAMINATION: The patient presented to be alert, pleasant, cooperative, and flat affect. The patient reported to feel hopeless and helpless in regards of the medical issues as well as depressed. The patient has low anergy, thought process seems to be coherent and goal directed. Thought content, the patient denied visual, auditory, or tactile hallucinations. Denied paranoid ideation. The patient does not present to be psychotic. The patient reported feeling of hopelessness and helplessness. Denied any intent or plan to kill himself. Insight and judgment seems to be improving. Impulses are well controlled. IMPRESSION: Most likely, the patient has major depressive disorder, rule out mood disorder due to general medical condition. PLAN This sba underwriter offered the patient psychiatric admission for further evaluation and stabilization, the patient feels hesitant about that, but this sba underwriter will start changing medications. The patient did not have any improvement from Cymbalta, will start Effexor, also Ambien will be discontinued. Sonata started as needed. Abilify was started. Seroquel discontinued due to metabolic profile. We will follow up and advise accordingly. The patient might greatly benefit from psych admission. We will follow up and advise accordingly. Thank you very much for letting me to participate in the care of your patient. Jolie Koo MD
[2018-02-04] MEDS: oxyCODONE 20 mg Immediate Release Tab PO PRN ×2 (08:46→20:10)
[2018-02-04] MEDS: Pantoprazole 40 mg EC Tab PO SCH (09:19)
[2018-02-04] MEDS: Magnesium Oxide 400 mg Tab UD PO SCH (09:19)
[2018-02-04] MEDS: DICLOFENAC SODIUM 50 MG PO SCH ×3 (09:20→18:39)
[2018-02-04] MEDS: Apap-Butalbital-Caffeine 325-50-40mg Tab PO SCH (09:20)
[2018-02-04 09:41] LABS: PH,URINE 7.5 (4.7-8.0); URINE BILIRUBIN NEGATIVE (NEGATIVE); URINE BLOOD NEGATIVE (NEGATIVE); URINE GLUCOSE (UA) NEGATIVE (NEGATIVE); URINE LEUKOCYTE ESTERASE NEGATIVE Leu/uL (NEGATIVE); URINE PROTEIN NEGATIVE mg/dL (<30 mg/dL); URINE UROBILINOGEN 0.2 E.U./dL (<1 E.U./dL)
[2018-02-04 09:57] LABS: URINE APPEARANCE CLEAR (CLEAR); URINE COLOR YELLOW (YELLOW)
[2018-02-04] MEDS ORDERED: Venlafaxine 75 mg ER Cap PO SCH (15:46)
[2018-02-04] MEDS ORDERED: Midazolam 2 MG/2 ML VIAL ONE (16:45)
[2018-02-04] MEDS ORDERED: Propofol 10 mg/ml Inj (20 ML) ONE ×2 (16:45→17:01)
--- NOTE | 2018-02-04 16:45 | CARD ---
APPROVED REPORT Date of service: 02/04/2018 EXAM: Two-dimensional and M-mode echocardiogram with Doppler and color Doppler. INDICATION Dyspnea Chest Pain 2D DIMENSIONS Left Atrium (2D)4.1 (1.6-4.0cm)IVSd1.5 (0.7-1.1cm) LVDd5.1 (3.9-5.9cm)PWd1.4 (0.7-1.1cm) LVDs3.4 (2.5-4.0cm)FS (%) 33.5 % LVEF (%)62.0 (>50%) M-Mode DIMENSIONS Aortic Root3.30 (2.2-3.7cm)Aortic Cusp Exc.2.40 (1.5-2.0cm) Aortic Valve AoV Peak Nuxglace533.0cm/Toya Peak GR.9mmHg Mitral Valve MV E Vashjhiw65.4cm/sMV A Xjptoaej15.7cm/sE/A ratio0.7 TDI E/Lateral E'0.0E/Medial E'0.0 Tricuspid Valve TR Peak Hsgytqps084jz/sRAP [id number] Peak Gr.17mmHg [id number] LEFT VENTRICLE The left ventricle is normal size. There is mild to moderate concentric left ventricular hypertrophy. The left ventricular function is normal. The left ventricular ejection fraction is within the normal range. There is normal LV segmental wall motion. Transmitral Doppler flow pattern is Grade I-abnormal relaxation pattern. RIGHT VENTRICLE The right ventricle is normal size. There is normal right ventricular wall thickness. The right ventricular systolic function is normal. ATRIA The left atrium is borderline dilated. The right atrium size is normal. AORTIC VALVE The aortic valve is normal in structure. No aortic regurgitation is present. There is no aortic valvular stenosis. MITRAL VALVE The mitral valve is normal in structure. There is no mitral valve regurgitation noted. There is no mitral valve stenosis. TRICUSPID VALVE The tricuspid valve is normal in structure. There is no tricuspid valve regurgitation noted. PULMONIC VALVE The pulmonary valve is normal in structure. There is trace pulmonic valvular regurgitation. GREAT VESSELS The aortic root is normal in size. PERICARDIAL EFFUSION There is no pericardial effusion. <Conclusion> The left ventricle is normal size. There is mild to moderate concentric left ventricular hypertrophy. The left ventricular function is normal. The left ventricular ejection fraction is within the normal range. There is normal LV segmental wall motion. Transmitral Doppler flow pattern is Grade I-abnormal relaxation pattern.
[2018-02-04] MEDS ORDERED: Sodium Chloride 0.9% 1,000 ML IV SCH (17:45)
[2018-02-04 18:18] VITALS: RESP 18
--- NOTE | 2018-02-04 18:31 | PN ---
DATE: 02/04/2018 SUBJECTIVE: This science writer adjusting medications for this patient. Yesterday, Seroquel was discontinued, Ambien was discontinued. Started Abilify as well as Sonata. The patient scheduled for colonoscopy today. He was feeling anxious that is why the patient reported that he was not able to fall asleep, to stay asleep. The patient reported that he tolerates discontinuation of Cymbalta well. The patient agreed to increase the dose of Effexor. Meanwhile, the patient presented the same way depressed, but denied any thoughts of harming himself or others. The patient does not want to sign himself into the Psychiatric Inpatient Unit. VITAL SIGNS: Stable. Temperature 98.3, pulse 73, blood pressure 120/65, respiration 20, oxygen saturation is 96. MEDICATIONS: Reviewed. The patient is on n.p.o. because of the procedure. LABORATORY DATA: Reviewed. Most recent was from yesterday. Chemistry also seems to be within normal limits. MENTAL STATUS EXAMINATION: The patient presented to be alert and oriented, pleasant, cooperative. Good eye contact. Speech was normal rate, tone, quality and quantity. Mood described as, "I feel depressed and anxious." Thought process was coherent and goal directed. Thought content, the patient denied visual, auditory, tactile hallucinations. Denied paranoid ideation. The patient denied thoughts of harming himself or others. Denied intent or plan. Insight and judgment seems to be improving. Impulses are well controlled. IMPRESSION: Rule out major depressive disorder, rule out mood disorder due to general medical condition. PLAN: Cymbalta was discontinued. Ambien was discontinued. Abilify 2.5 mg at the nighttime started for mood stabilization as adjunct for medications for depression. Effexor was increased to 37 mg today. Sonata 5 mg as needed for insomnia. We will follow up and advise accordingly. Admission was offered, but the patient declined that offer. We will follow up and advise tomorrow. Thank you very much for letting me participate in the care of your patient. Jolie Koo MD [facility] # [id number]
[2018-02-04 19:48] VITALS: BP 164/109; PULSE 96; TEMP 98.4; O2SAT 95
--- NOTE | 2018-02-05 08:25 | CP.PCM.PCO ---
Physician Communication Note - Physician Communication Note Physician Communication Note: pt was d/c
== END 2018-02-04 20:35 | disposition home or self-care (01) ==
LOC: ED 21:44 → ERH 02-02 00:25 → 5RNO 02-02 02:06 → 5RSO 02-03 00:15
PROVIDERS: ADMIT Internal Medicine; ATTEND Internal Medicine
DX: K92.1 Melena (principal); K31.9 Disease of stomach and duodenum, unspecified; K60.3 Anal fistula; K62.3 Rectal prolapse; K21.9 Gastro-esophageal reflux disease without esophagitis; K29.80 Duodenitis without bleeding; K64.1 Second degree hemorrhoids; K64.4 Residual hemorrhoidal skin tags; K52.9 Noninfective gastroenteritis and colitis, unspecified; I10 Essential (primary) hypertension; F32.9 Major depressive disorder, single episode, unspecified; F17.210 Nicotine dependence, cigarettes, uncomplicated; Z98.1 Arthrodesis status
CPT/HCPCS: 36415; 43239; 45378; 74177; 80053; 80074; 81003; 83735; 84100; 84484; 85014; 85018; 85025; 85027; 85610; 85730; 86039; 86430; 86850; 86900; 88305; 88312; 88342; 93306; 96361; 96365; 96375; 96376; 99285; C9113; G0378; J2001; J2250; J2704; J2765; J3010; J3475; J7030; J7040; Q9967

== ENCOUNTER 2018-03-02 20:58 | Emergency (ER) | payer MEDICAID ==
[2018-03-02 20:58] VITALS: BMI 46.1
[2018-03-02 21:29] VITALS: BP 106/71; PULSE 90; RESP 18; TEMP 98.7; O2SAT 99
[2018-03-02 22:27] LABS: BASO # 0.06 K/mm3 (0.0-2.0); BASO % 0.5 % (0.0-3.0); EOS % 7.8 % (1.5-5.0); GRAN # 7.41 (1.4-6.5); HEMOGLOBIN 12.6 g/dL (14.0-18.0); LYMPH # 3.4 (1.2-3.4); LYMPH % 27.4 % (22.0-35.0); MEAN CELL VOLUME 84.8 fl (80.0-105.0); MEAN CORPUSCULAR HEMOGLOBIN 27.7 pg (25.0-35.0); MEAN CORPUSCULAR HGB CONC 32.6 g/dl (31.0-37.0); MEAN PLATELET VOLUME 9.2 fl (7.0-11.0); MONO # 0.5 (0.1-0.6); MONO % 4.3 % (1.0-6.0); RBC 4.55 10^6/uL (3.5-6.1); RED CELL DISTRIBUTION WIDTH 15.5 % (11.5-14.5); WHITE BLOOD COUNT 12.4 10^3/uL (4.5-11.0)
--- NOTE | 2018-03-02 22:49 | ED PDOC ---
Arrival/HPI - General Chief Complaint: Lower Extremity Problem/Injury Historian: Patient - History of Present Illness Narrative History of Present Illness (Text): 03/02/18 22:43 42 year old male, whose past medical history includes hypertension, hyperlipi demia, and anal fistula, presents to the emergency department complaining of right leg pain, for 4 days. Patient states he has a burning pain from the right upper thigh to the knee. Patient also informs of numbness on and off. Patient states he takes Dilaudid at home without relief. Patient denies any focal weakness, Saddle anesthesia, trauma, abdominal pain, urinary symptoms, headache, dizziness, slurred speech, redness, fever, swelling, or any other complaints. Time/Duration: < week (4 days) Quality: Burning Past Medical History - Provider Review Nursing Documentation Reviewed: Yes - Infectious Disease Hx of Infectious Diseases: None - Tetanus Immunization Tetanus Immunization: Unknown - Cardiac Hx Pacemaker: No - Pulmonary Hx Tuberculosis: No - Neurological Hx Paralysis: No - HEENT Other/Comment: central serious retnopathy - Hematological/Oncological Hx Blood Transfusions: (PT IS UNSURE) Hx Blood Transfusion Reaction: (PT IS UNSURE) - Musculoskeletal/Rheumatological Hx Musculoskeletal Disorders: No - Gastrointestinal Other/Comment: anal fissure - Genitourinary/Gynecological Hx Genitourinary Disorders: No Hx Sexually Transmitted Diseases: No - Psychiatric Hx Emotional Abuse: No Hx Physical Abuse: No Hx Substance Use: No - Surgical History Other/Comment: spinal fusion c5-c7 (04/12/13) - Anesthesia Hx Anesthesia: Yes Hx Anesthesia Reactions: No Hx Malignant Hyperthermia: No - Suicidal Assessment Feels Threatened In Home Enviroment: No Family/Social History - Physician Review Nursing Documentation Reviewed: Yes Family/Social History: No Known Family HX Smoking Status: Light Smoker < 10 Cigarettes Daily Hx Alcohol Use: Yes Hx Substance Use: No Hx Substance Use Treatment: No Allergies/Home Meds Allergies/Adverse Reactions: Allergies zolpidem [From Ambien] Adverse Reaction (Unknown, Verified 02/04/18 16:52) .UNABLE TO MOVE REPORTS UNABLE TO MOVE FOR 3 HOURS Home Medications: Home Meds Medication Instructions Recorded Confirmed ALPRAZolam 1 mg PO DAILY 02/02/18 02/02/18 Butalbital 50 mg PO DAILY 02/02/18 02/02/18 Diclofenac 50 mg PO DAILY 02/02/18 02/02/18 Magnesium 500 mg PO DAILY 02/02/18 02/02/18 Pantoprazole 40 mg PO DAILY 02/02/18 02/02/18 Prednisone 10 mg PO DAILY 02/02/18 02/02/18 Quetiapine Fumarate 50 mg PO DAILY 02/02/18 02/02/18 RX: oxyCODONE [oxyCODONE Immediate 20 mg PO TID PRN 02/02/18 02/02/18 Release Tab] Tylenol 650 mg PO PRN PRN 02/02/18 02/02/18 Vitamin C 500 mg PO DAILY 02/02/18 02/02/18 amLODIPine 10 mg PO DAILY 02/02/18 02/02/18 Review of Systems - Physician Review All systems were reviewed & negative as marked: Yes - Review of Systems Constitutional: absent: Fevers Gastrointestinal: absent: Abdominal Pain Genitourinary Male: Normal Musculoskeletal: absent: Joint Swelling, Other (no saddle anesthesia ) Skin: absent: Other (no redness) Neurological: absent: Headache, Dizziness, Focal Weakness, Speech Changes Physical Exam Vital Signs Reviewed: Yes Vital Signs Temp Pulse Resp BP Pulse Ox 03/02/18 21:21 98.7 F 90 18 106/71 99 Temperature: Afebrile Blood Pressure: Normal Pulse: Regular Respiratory Rate: Normal Appearance: Positive for: Well-Appearing, Non-Toxic, Comfortable Pain Distress: None Mental Status: Positive for: Alert and Oriented X 3 - Systems Exam Head: Present: Atraumatic, Normocephalic Pupils: Present: PERRL Extroacular Muscles: Present: EOMI Conjunctiva: Present: Normal Mouth: Present: Moist Mucous Membranes Neck: Present: Normal Range of Motion Respiratory/Chest: Present: Clear to Auscultation, Good Air Exchange. No: Respiratory Distress, Accessory Muscle Use Cardiovascular: Present: Regular Rate and Rhythm, Normal S1, S2. No: Murmurs Abdomen: No: Tenderness, Distention, Peritoneal Signs Back: Present: Normal Inspection Upper Extremity: Present: Normal Inspection. No: Cyanosis, Edema Lower Extremity: Present: Normal Inspection, NORMAL PULSES, Normal ROM, Neurovascularly Intact. No: Edema, Tenderness, Swelling, Erythema, Temperature Abnormalties Neurological: Present: GCS=15, CN II-XII Intact, Speech Normal Skin: Present: Warm, Dry, Normal Color. No: Rashes Psychiatric: Present: Alert, Oriented x 3, Normal Insight, Normal Concentration Medical Decision Making ED Course and Treatment: 03/02/18 22:51 Impression: 42 year old male presents with right leg pain. Plan: -- Labs -- X rays right leg -- Lyrica -- US of right leg -- Reassess and disposition Prior Visits: Notes and results from previous visits were reviewed. Pt declined all imaging and lab result states he wants to sign out AMA Progress Notes: 03/02/18 22:54 This patient is choosing to leave against medical advice. I have personally explained to the patient that choosing to do so may result in permanent bodily harm or . I have discussed at great length that without further evaluation and monitoring there may be unforeseen circumstances and/or deterioration causing permanent bodily harm or as a result of their choice. The patient is alert, oriented, and shows the mental capacity to make clear decisions regarding the patients health care at this time. The patient continues to wish to leave against medical advice. In light of the patients decision to leave AMA, follow-up has been arranged and the patient is aware of the importance of following up as instructed. The patient has been advised that they should return to the ED immediately if they change their mind at any time, or if their condition begins to change or worsen in any way. - Lab Interpretations Lab Results: 03/02/18 22:15 Lab Results 03/02/18 22:15: WBC 12.4 H, RBC 4.55, Hgb 12.6 L, Hct 38.6 L, MCV 84.8, MCH 27.7, MCHC 32.6, RDW 15.5 H, Plt Count 336, MPV 9.2, Gran % 60.0, Lymph % (Auto) 27.4, Wilkes % (Auto) 4.3, Eos % (Auto) 7.8 H, Baso % (Auto) 0.5, Gran # 7.41 H, Lymph # (Auto) 3.4, Wilkes # (Auto) 0.5, Eos # (Auto) 1.0 H, Baso # (Auto) 0.06 - RAD Interpretation Radiology Orders: 03/02/18 22:26 DUPLEX LOWER EXTRM VEIN RIGHT [US] Stat 03/02/18 22:27 Femur Right [FEMUR 1 VIEW RT] [RAD] Stat - Medication Orders Current Medication Orders: Discontinued Medications Pregabalin (Lyrica) 100 mg PO ONCE STA Stop: 03/02/18 22:03 Last Admin: 03/02/18 22:23 Dose: 100 mg - Scribe Statement The provider has reviewed the documentation as recorded by the Varun De Guzman Provider Scribe Attestation: All medical record entries made by the Scribe were at my direction and personally dictated by me. I have reviewed the chart and agree that the record accurately reflects my personal performance of the history, physical exam, medical decision making, and the department course for this patient. I have also personally directed, reviewed, and agree with the discharge instructions and disposition. Disposition/Present on Arrival - Present on Arrival Any Indicators Present on Arrival: No History of DVT/PE: No History of Uncontrolled Diabetes: No Urinary Catheter: No History of Decub. Ulcer: No History Surgical Site Infection Following: None - Disposition Have Diagnosis and Disposition been Completed?: Yes Diagnosis: Leg pain Disposition: AGAINST MEDICAL ADVICE Disposition Time: 22:50 Patient Problems: Current Active Problems Problem Status Onset Leg pain Acute Condition: GOOD Referrals: Sergei Myles MD [Primary Care Provider] - Follow up with primary Forms: [employer] ([place]uan)
[2018-03-02 23:10] LABS: ALB/GLOB RATIO 1.3 (1.1-1.8); ALBUMIN 4.2 g/dL (3.0-4.8); ALT/SGPT 55 U/L (7-56); AST/SGOT 57 U/L (17-59); BLOOD UREA NITROGEN 20 mg/dL (7-21); CALCIUM 9.7 mg/dL (8.4-10.5); GFR NON-AFRICAN AMERICAN > 60
== END 2018-03-02 22:50 | disposition left against medical advice (07) ==
LOC: ED 20:58
DX: M79.604 Pain in right leg (principal); I10 Essential (primary) hypertension; E78.5 Hyperlipidemia, unspecified; F17.210 Nicotine dependence, cigarettes, uncomplicated

== ENCOUNTER 2018-04-09 08:48 | Outpatient (CLI) | payer MEDICAID | END 2018-04-09 08:49 | disposition home or self-care (01) | LOC: CARDIO 08:48 ==

== ENCOUNTER 2018-05-05 15:11 | Outpatient (CLI) | payer MEDICAID | END 2018-05-05 15:12 | disposition home or self-care (01) | LOC: RAD 15:11 ==

== ENCOUNTER 2018-07-08 10:58 | Outpatient (CLI) | payer MEDICAID | END 2018-07-08 10:59 | disposition home or self-care (01) | LOC: RAD 10:58 ==

== ENCOUNTER 2018-07-20 13:08 | Emergency (ER) | payer MEDICAID ==
[2018-07-20 14:13] VITALS: BMI 47.5
== END 2018-07-20 13:53 | disposition left against medical advice (07) ==
LOC: ED 13:08
DX: Z02.89 Encounter for other administrative examinations (principal); M54.9 Dorsalgia, unspecified

== ENCOUNTER 2018-07-20 13:58 | Emergency (ER) | payer MEDICAID ==
[2018-07-20 14:13] VITALS: BMI 47.5
[2018-07-20 14:16] VITALS: RESP 18
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
[2018-07-20 15:35] LABS: BASO # 0.05 K/mm3 (0.0-2.0); BASO % 0.6 % (0.0-3.0); EOS # 1.1 (0.0-0.7); EOS % 11.6 % (1.5-5.0); HEMOGLOBIN 11.1 g/dL (14.0-18.0); LYMPH # 3.5 (1.2-3.4); MEAN CELL VOLUME 84.6 fl (80.0-105.0); MEAN CORPUSCULAR HEMOGLOBIN 26.3 pg (25.0-35.0); MEAN CORPUSCULAR HGB CONC 31.1 g/dl (31.0-37.0); MEAN PLATELET VOLUME 10.1 fl (7.0-11.0); MONO # 0.6 (0.1-0.6); MONO % 6.4 % (1.0-6.0); RBC 4.22 10^6/uL (3.5-6.1); RED CELL DISTRIBUTION WIDTH 15.9 % (11.5-14.5)
[2018-07-20 15:40] LABS: PARTIAL THROMBOPLASTIN TIME 34.2 Seconds (26.9-38.3); PROTHROMBIN TIME 11.1 SECONDS (9.4-12.5)
[2018-07-20 15:48] LABS: ALB/GLOB RATIO 1.4 (1.1-1.8); ALBUMIN 4.1 g/dL (3.0-4.8); ALT/SGPT 40 U/L (7-56); AST/SGOT 46 U/L (17-59); BLOOD UREA NITROGEN 40 mg/dL (7-21); CALCIUM 8.8 mg/dL (8.4-10.5); GFR NON-AFRICAN AMERICAN 27; LIPASE 69 U/L (23-300)
[2018-07-20 16:04] LABS: TROPONIN I < 0.01 ng/mL
[2018-07-20] MEDS ORDERED: Sodium Chloride 0.9% 1,000 ML IV SCH (17:00)
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
[2018-07-20] MEDS ORDERED: Sodium Chloride 0.9% 1,000 ML IV STA ×2 (17:25)
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
[2018-07-20] MEDS ORDERED: Naloxone 0.4 mg/ml Inj (Adult) ONE (17:38)
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
[2018-07-20 18:27] LABS: VENOUS BLOOD GAS BASE EXCESS 1.9 mmol/L (0.0-2.0); VENOUS BLOOD GAS PO2 84 mm/Hg (30-55); VENOUS BLOOD PH 7.36 (7.32-7.43)
[2018-07-20 20:13] LABS: URINE BILIRUBIN NEGATIVE (NEGATIVE); URINE BLOOD NEGATIVE (NEGATIVE); URINE GLUCOSE (UA) NEGATIVE (NEGATIVE); URINE LEUKOCYTE ESTERASE NEGATIVE Leu/uL (NEGATIVE); URINE PROTEIN NEGATIVE mg/dL (<30 mg/dL); URINE UROBILINOGEN 0.2 E.U./dL (<1 E.U./dL)
[2018-07-20 20:16] LABS: URINE APPEARANCE CLEAR (CLEAR); URINE COLOR YELLOW (YELLOW)
[2018-07-20 20:29] LABS: BARBITURATES, UR NEGATIVE (NEGATIVE); BENZODIAZEPINES, UR POSITIVE (NEGATIVE); OPIATES, UR POSITIVE (NEGATIVE); PHENCYCLIDINE, UR NEGATIVE (NEGATIVE)
[2018-07-20 20:46] VITALS: BP 110/62; PULSE 67; TEMP 97.9; O2SAT 100
--- NOTE | 2018-07-20 21:30 | CARD ---
APPROVED REPORT Date of service: 07/20/2018 EKG Measurement Heart [id number] <Conclusion> Sinus rhythm with 1st degree AV block Otherwise normal ECG
== END 2018-07-20 20:51 | disposition home or self-care (01) ==
LOC: ED 13:58 → UNDOADMIN 18:17 → ERH 18:17
DX: I95.9 Hypotension, unspecified (principal); E78.5 Hyperlipidemia, unspecified; M54.9 Dorsalgia, unspecified; K21.9 Gastro-esophageal reflux disease without esophagitis
CPT/HCPCS: 70450; 71046; 72125; 72131; 74176; 80053; 80324; 80345; 80346; 80349; 80353; 80358; 80361; 81003; 82803; 83690; 83992; 84484; 85025; 85610; 85730; 86850; 86900; 93005; 96360; 99285; J2310; J7030

== ENCOUNTER 2018-08-10 20:50 | Inpatient (IN) | payer MEDICAID ==
[2018-08-10 21:00] VITALS: BMI 46.2
--- NOTE | 2018-08-10 21:24 | ED PDOC ---
Arrival/HPI - General Chief Complaint: Psychiatric Evaluation Time Seen by Provider: 08/10/18 20:58 Historian: Patient - History of Present Illness Narrative History of Present Illness (Text): 08/10/18 21:24 42 year old male, with a past medical history of GI bleed, depression, anxiety, hypertension, and chronic back pain secondary to herniated disc, who presents to the emergency department complaining of depression and suicidal thoughts for the past couple of days. Patient reports depression is from family issues and health problems, and states he is being evaluated for a lung mass. He endorses taking oxycodone earlier today for his chronic back pain, but denies taking any excess of the medication. He denies any chest pain, shortness of breath, fever, chills, cough, or any other complaints. PMD: Dr. Myles Time/Duration: < week Symptom Onset: Gradual Symptom Course: Unchanged Activities at Onset: Light Context: Home Past Medical History - Provider Review Nursing Documentation Reviewed: Yes Primary Care Provider: Sergei Myles - Infectious Disease Hx of Infectious Diseases: None - Tetanus Immunization Tetanus Immunization: Unknown - Cardiac Hx Hypertension: Yes - Pulmonary Hx Tuberculosis: No - Neurological Hx Paralysis: No - HEENT Other/Comment: central serious retnopathy - Hematological/Oncological Hx Blood Transfusions: (PT IS UNSURE) Hx Blood Transfusion Reaction: (PT IS UNSURE) - Musculoskeletal/Rheumatological Hx Musculoskeletal Disorders: No - Gastrointestinal Hx Gastroesophageal Reflux: Yes Other/Comment: anal fissure - Genitourinary/Gynecological Hx Genitourinary Disorders: No Hx Sexually Transmitted Diseases: No - Psychiatric Hx Anxiety: Yes Hx Depression: Yes Hx Emotional Abuse: No Hx Physical Abuse: No Hx Substance Use: No Other/Comment: SI - Surgical History Other/Comment: spinal fusion c5-c7 (04/12/13) - Anesthesia Hx Anesthesia: Yes Hx Anesthesia Reactions: No Hx Malignant Hyperthermia: No - Suicidal Assessment Feels Threatened In Home Enviroment: No Family/Social History - Physician Review Nursing Documentation Reviewed: Yes Family/Social History: Unknown Family HX Smoking Status: Light Smoker < 10 Cigarettes Daily Hx Alcohol Use: Yes Hx Substance Use: No Hx Substance Use Treatment: No Allergies/Home Meds Allergies/Adverse Reactions: Allergies zolpidem [From Ambien] Adverse Reaction (Unknown, Verified 08/10/18 21:00) .UNABLE TO MOVE REPORTS UNABLE TO MOVE FOR 3 HOURS Home Medications: Home Meds Medication Instructions Recorded Confirmed Aripiprazole [Abilify] 2 mg PO DAILY 04/09/18 08/10/18 Diclofenac Sodium [Voltaren] 50 mg PO QID 04/09/18 08/10/18 cloNIDine [clonidine HCl] 2 tab PO BID 04/09/18 08/10/18 ALPRAZolam [Xanax] 1 mg PO PRN PRN 07/20/18 08/10/18 Furosemide [Lasix] 40 mg PO BID 07/20/18 08/10/18 Gabapentin [Neurontin] 300 mg PO TID 07/20/18 08/10/18 Metoprolol Tartrate [Lopressor] 1 tab PO BID 07/20/18 08/10/18 Pantoprazole Sodium [Protonix] 40 mg PO BID 07/20/18 08/10/18 Quetiapine Fumarate [Seroquel] 50 mg PO DAILY 07/20/18 08/10/18 Ranitidine HCl [Acid Customer Response Representative] 2 tab PO DAILY 07/20/18 08/10/18 Venlafaxine [Effexor] 150 mg PO DAILY 07/20/18 08/10/18 amLODIPine [Norvasc] 10 mg PO DAILY 07/20/18 08/10/18 oxyCODONE [oxyCODONE Immediate 30 mg PO QID 07/20/18 08/10/18 Release Tab] Ascorbic Acid [Vitamin C] 1 tab PO DAILY 08/10/18 08/10/18 Cetirizine HCl [All Day Allergy 1 tab PO DAILY 08/10/18 08/10/18 Relief] Ferrous Sulfate [Feosol] 1 tab PO DAILY 08/10/18 08/10/18 Loratadine/Pseudoephedrine 1 tab PO DAILY 08/10/18 08/10/18 [Claritin-D 24 Hour Tablet] Sennosides [Veronica-Jackeline] 2 tab PO HS 08/10/18 08/10/18 Review of Systems - Physician Review All systems were reviewed & negative as marked: Yes - Review of Systems Constitutional: absent: Fevers Respiratory: absent: SOB, Cough Cardiovascular: absent: Chest Pain Psychiatric: Depression, Suicidal Ideation Physical Exam Vital Signs Reviewed: Yes Vital Signs Temp Pulse Resp BP Pulse Ox 08/10/18 21:00 98.7 F 95 H 18 146/96 H 97 Temperature: Afebrile Blood Pressure: Normal Pulse: Regular Respiratory Rate: Normal Appearance: Positive for: Well-Appearing, Non-Toxic, Comfortable Pain Distress: None Mental Status: Positive for: Alert and Oriented X 3 - Systems Exam Head: Present: Atraumatic, Normocephalic Pupils: Present: PERRL Extroacular Muscles: Present: EOMI Conjunctiva: Present: Normal Mouth: Present: Moist Mucous Membranes Neck: Present: Normal Range of Motion Respiratory/Chest: Present: Clear to Auscultation, Good Air Exchange. No: Respiratory Distress, Accessory Muscle Use Cardiovascular: Present: Regular Rate and Rhythm, Normal S1, S2. No: Murmurs Abdomen: No: Tenderness, Distention, Peritoneal Signs Back: Present: Normal Inspection Upper Extremity: Present: Normal Inspection. No: Cyanosis, Edema Lower Extremity: Present: Normal Inspection. No: Edema Neurological: Present: GCS=15, Speech Normal Skin: Present: Warm, Dry, Normal Color. No: Rashes Psychiatric: Present: Alert, Oriented x 3, Normal Insight, Normal Concentration. No: Normal Affect (Flat Affect) Medical Decision Making ED Course and Treatment: 08/10/18 21:19 Impression: 42 year old male presents to the ED complaining of depression and suicidal thoughts for the past couple of days. Differential Diagnosis included but are not limited to: Plan: -- EKG -- Labs -- Chest X-ray -- Reassess and disposition Prior Visits: Notes and results from previous visits were reviewed. Progress Notes: 08/10/18 22:15 CXR- No acute process EKG-NSR @ 83 ,no acute changes 08/10/18 23:13 Patient admitted to PES evaluation, Dr. Ash's service. - RAD Interpretation Radiology Orders: 08/10/18 21:03 CHEST PORTABLE [RAD] Stat - Scribe Statement The provider has reviewed the documentation as recorded by the Varun Huff All medical record entries made by the Scribe were at my direction and personally dictated by me. I have reviewed the chart and agree that the record accurately reflects my personal performance of the history, physical exam, medical decision making, and the department course for this patient. I have also personally directed, reviewed, and agree with the discharge instructions and disposition. Disposition/Present on Arrival - Present on Arrival Any Indicators Present on Arrival: No History of DVT/PE: No History of Uncontrolled Diabetes: No Urinary Catheter: No History of Decub. Ulcer: No History Surgical Site Infection Following: None - Disposition Have Diagnosis and Disposition been Completed?: Yes Diagnosis: Depression Disposition: HOSPITALIZED Disposition Time: 23:28 Patient Problems: Current Active Problems Problem Status Onset Depression Acute Condition: STABLE
[2018-08-10 21:54] LABS: HEMOGLOBIN 12.8 g/dL (14.0-18.0); MEAN CELL VOLUME 84.6 fl (80.0-105.0); MEAN CORPUSCULAR HGB CONC 31.9 g/dl (31.0-37.0); MEAN PLATELET VOLUME 9.7 fl (7.0-11.0); RBC 4.74 10^6/uL (3.5-6.1); RED CELL DISTRIBUTION WIDTH 15.8 % (11.5-14.5)
[2018-08-10 22:05] LABS: ACETAMINOPHEN < 10.0 ug/ml (10.0-20.0); SALICYLATE < 1 mg/dL (2.0-20.0)
[2018-08-10 22:06] LABS: ALB/GLOB RATIO 1.3 (1.1-1.8); ALBUMIN 4.6 g/dL (3.0-4.8); ALT/SGPT 48 U/L (7-56); AST/SGOT 38 U/L (17-59); BLOOD UREA NITROGEN 19 mg/dL (7-21); CALCIUM 9.5 mg/dL (8.4-10.5); GFR NON-AFRICAN AMERICAN > 60
[2018-08-11] MEDS ORDERED: Magnesium Hydroxide Susp 30 ml UD PO PRN (03:20)
[2018-08-11] MEDS ORDERED: Alum-Mag Hydrox-Simethicone Susp (30 mL) PO PRN (03:20)
--- NOTE | 2018-08-11 03:58 | PCM.BM ---
<Petrona Cedillo - Last Filed: 08/11/18 03:55> Treatment Plan Problems - Problems identified on initial assessmt Suicidal Ideation Date Initiated: 08/11/18 Time Initiated: 03:56 Assessment reference: NA Status: Active Ineffective Coping Date Initiated: 08/11/18 Time Initiated: 03:57 Assessment reference: NA Status: Active Hopelessness/Helplessness Date Initiated: 08/11/18 Time Initiated: 03:58 Assessment reference: NA Status: Active Social Isolation Date Initiated: 08/11/18 Time Initiated: 03:58 Assessment reference: NA Status: Active Self Care Deficit Date Initiated: 08/11/18 Time Initiated: 03:59 Assessment reference: NA Status: Active Treatment assets and liabiliti Patient Assests: ADL independent, physically healthy, cognitively intact Patient Liabilities: live alone, physical pain - Milieu Protocol Maintain good personal hygiene: daily Encourage regular showers, daily Remind patient to perform daily oral care, daily Assist patient to perform ADL's Maintain personal safety: every other day Educate patient to report safety concerns to staff, every other day Monitor environment for contraband/sharps Medication safety: Monitor for expected outcome, potential side effects: every other day, Assess barriers to learning: every other day, Assess readiness for medication education: every other day <Jolie Koo - Last Filed: 08/11/18 16:24> - Diagnosis (1) Mood disorder due to a general medical condition Status: Acute Interventions: 08/11/18 16:24 Pt will be seen by medical team as needed Medications will be confirmed and resumed Additional consultation by specialists as needed Lab work as needed (CBC, CMP, TSH, free T4, UA, Urine test for females as needed) CXR as needed EKG Physical therapy evaluation as needed (2) Depression Status: Acute Interventions: 08/11/18 16:24 Psychoeducation Psychopharmacology/adjustment of medications as needed/ monitoring possible side effects Evaluate pt on daily basis Compliance with medications and follow up appointments Suicide and homicide risk assessment and prevention Relapse prevention Reduction of symptoms Improve functional status Family involvement As outpatient: cognitive behavioral therapy <Rajani Madrigal - Last Filed: 08/12/18 12:23> Family Contact Family involvement: Famliy/SO not involved <José,Uma - Last Filed: 08/12/18 15:11>
[2018-08-11 05:01] VITALS: O2SAT 96
[2018-08-11 08:02] LABS: GLUCOSE,FASTING 85 mg/dL (65-110); HDL CHOLESTEROL 28 mg/dL (29-60)
[2018-08-11 08:14] LABS: LDL CHOLESTEROL 143 mg/dL (0-129)
--- NOTE | 2018-08-11 08:59 | RAD ---
Date of service: 08/10/2018 HISTORY: medical clearance COMPARISON: 07/20/2018. FINDINGS: LUNGS: No active pulmonary disease. PLEURA: No significant pleural effusion identified, no pneumothorax apparent. CARDIOVASCULAR: No atherosclerotic calcification present Normal. OSSEOUS STRUCTURES: No significant abnormalities. VISUALIZED UPPER ABDOMEN: Normal. OTHER FINDINGS: None. IMPRESSION: No active disease. No significant interval change compared to the prior examination(s).
--- NOTE | 2018-08-11 09:11 | CARD ---
APPROVED REPORT Date of service: 08/10/2018 EKG Measurement Heart [id number] <Conclusion> Normal sinus rhythm Left axis deviation Abnormal ECG
[2018-08-11 16:07] LABS: BARBITURATES, UR NEGATIVE (NEGATIVE); BENZODIAZEPINES, UR POSITIVE (NEGATIVE); OPIATES, UR POSITIVE (NEGATIVE); PHENCYCLIDINE, UR NEGATIVE (NEGATIVE)
[2018-08-11] MEDS: Pantoprazole 40 mg EC Tab PO SCH (16:23)
--- NOTE | 2018-08-11 16:23 | PCM.PSYCH ---
Initial Psychiatric Evaluation - Initial Psychiatric Evaluation Type of Admission: Voluntary Legal Status: Capacity Chief Complaint (in patient's own words): "I do not remember saying anything in the emergency room that would lead me to this hospitalization, I am not crazy..., may be my cousin said something" Patient's Reaction to Hospitalization: Patient was admitted for evaluation of depressive symptoms, possible suicidal ideation. History of Present Illness and Precipitating Events: Shortly patient is 42 year old male, with history of depression, multiple medical issues including but not limited to history of GI bleed, hypertension, and chronic back pain secondary to herniated disc, cancer. Initially patient presented to the emergency department complaining of depression and suicidal thoughts for the past couple of days, based on the ED report pt reported depression is from family issues and health problems, and states he is being evaluated for a lung mass. Based on the report in the emergency room, patient took extra pills of pain medication, questionable suicidal attempt. Patient requires further evaluation/observation/medication management. Patient was seen and examined today at the treatment team meeting with medical student. Patient presented to be disengaged, depressed, had difficulty to stay focus and concentrate, patient presented with acceptable personal hygiene, fair ADLs. Patient seems to be minimizing of his symptoms, patient was not forthcoming with information about his emergency room visit circumstances. Patient reported that she was feeling depressed but not hopeless or helpless, patient denied any suicidal ideation or intent/plan. But based on the above report from the emergency room patient tried to overdose on medications. Patient allowed this sign writer letterer or painter to contact his cousin who brought him to the hospital, RN educated to obtain phone number from pt's cellphone which was locked in the unit. Patient reported that he was feeling anxious all involved, denied panic attacks. Patient denied hearing voices, denied seeing things, denied paranoid ideations. Patient denied history of being abused in the past. Patient denied using drugs, denied alcohol consumption. pt smokes 2packs a day, counseling provided, nicotine patch offered pt said that he wants to be transferred to the medical site. Past psychiatric history: Patient denied being admitted to the psychiatric inpatient unit patient denied of suicidal attempts. This sign writer letterer or painter is very familiar with this patient from the consultation services in January 2018 patient has history of being seen by Dr. Jl Calvin, currently under care of Dr. Ash at [facility] clinic. Medical history: Patient has multiple medical issues, please see emergency room evaluation, pt reported he supposed to have CT of the chest for the lung mass, pt also reported his PMD is , pt also reported that he needs to see his leather cleaner, but does not remember his name. Family history: Denied. 08/10/18 21:49 08/10/18 21:49 Lab Results 08/11/18 15:38: Urine Opiates Screen Positive H, Urine Methadone Screen Negative, Ur Barbiturates Screen Negative, Ur Phencyclidine Scrn Negative, Ur Amphetamines Screen Negative, U Benzodiazepines Scrn Positive H, U Oth Cocaine Metabols Negative, U Cannabinoids Screen Negative 08/11/18 07:40: TSH 3rd Generation 1.07 08/11/18 07:40: Fasting Glucose 85, Triglycerides 283 H, Cholesterol 221 H, LDL Cholesterol Direct 143 H, HDL Cholesterol 28 L 08/11/18 06:00: RPR Nonreactive 08/10/18 21:49: Salicylates < 1 L, Acetaminophen < 10.0 L 08/10/18 21:49: Alcohol, Quantitative < 10 08/10/18 21:49: Sodium 138, Potassium 4.0, Chloride 99, Carbon Dioxide 30, Anion Gap 13, BUN 19, Creatinine 1.2, Est GFR ( Amer) > 60, Est GFR (Non-Af Amer) > 60, Random Glucose 94, Calcium 9.5, Total Bilirubin 0.4, AST 38, ALT 48, Alkaline Phosphatase 63, Total Protein 8.0, Albumin 4.6, Globulin 3.5, Albumin/Globulin Ratio 1.3 08/10/18 21:49: WBC 9.0, RBC 4.74, Hgb 12.8 L, Hct 40.1 L, MCV 84.6, MCH 27.0, MCHC 31.9, RDW 15.8 H, Plt Count 280, MPV 9.7 Vital Signs Temp Pulse Resp BP Pulse Ox 08/11/18 06:34 97.6 F 97 H 18 108/70 08/11/18 03:42 98 F 90 16 118/81 96 08/10/18 21:59 88 18 159/75 H 95 08/10/18 21:00 98.7 F 95 H 18 146/96 H 97 The patient failed the outpatient lower level of care: Yes Current Medications: Active Medications Generic Name Dose Route Start Last Admin Trade Name Freq PRN Reason Stop Dose Admin Acetaminophen 650 mg 08/11/18 03:20 Tylenol 325mg Tab PO Q6H PRN Pain, moderate (4-7) Al Hydrox/Mg Hydrox/Simethicone 30 ml 08/11/18 03:20 Maalox Plus 30 Ml PO DAILY PRN Indigestion / Heartburn Lorazepam 1 mg 08/11/18 03:21 Ativan PO Q8 PRN Anxiety Protocol Magnesium Hydroxide 30 ml 08/11/18 03:20 Milk Of Magnesia PO DAILY PRN Constipation Paroxetine HCl 10 mg 08/11/18 08:00 Paxil PO DAILY MIHIR Zaleplon 10 mg 08/11/18 03:21 Sonata PO HS PRN Insomnia Present on Admission - Present on Admission Any Indicators Present on Admission: No History of DVT/PE: No History of Uncontrolled Diabetes: No Urinary Catheter: No Decubitus Ulcer Present: No Review of Systems - Review of Systems Systems not reviewed;Unavailable: Acuity of Condition - Constitutional Constitutional: As Per HPI - EENT Eyes: As Per HPI Ears: As Per HPI Nose/Mouth/Throat: As Per HPI - Cardiovascular Cardiovascular: As Per HPI - Respiratory Respiratory: As Per HPI - Gastrointestinal Gastrointestinal: As Per HPI - Genitourinary Genitourinary: As Per HPI - Reproductive: Male Reproductive:Male: As Per HPI - Musculoskeletal Musculoskeletal: As Per HPI - Integumentary Integumentary: As Per HPI - Neurological Neurological: As Per HPI - Psychiatric Psychiatric: As Per HPI - Endocrine Endocrine: As Per HPI - Hematologic/Lymphatic Hematologic: As Per HPI Past Patient History - Past Psychiatric History Previous Treatment History: Inpatient Prior Professional Help: See HPI Prior Psychiatric Treatment: See HPI At what hospital: See HPI Duration: See HPI Nature of Treatment: See HPI Explanation of prior treatment: See HPI - PSYCHIATRIC Hx Depression: Yes Hx Substance Use: Yes - Infectious Disease Hx of Infectious Diseases: None - Tetanus Immunizations Tetanus Immunization: Unknown - CARDIAC Hx Hypertension: Yes - PULMONARY Hx Tuberculosis: No - NEUROLOGICAL Hx Paralysis: No - HEENT Other/Comment: central serious retnopathy - HEMATOLOGICAL/ONCOLOGICAL Hx Blood Transfusions: (PT IS UNSURE) Hx Blood Transfusion Reaction: (PT IS UNSURE) - MUSCULOSKELETAL/RHEUMATOLOGICAL Hx Musculoskeletal Disorders: No - GASTROINTESTINAL Hx Gastroesophageal Reflux: Yes Other/Comment: anal fissure - GENITOURINARY/GYNECOLOGICAL Hx Genitourinary Disorders: No Hx Sexually Transmitted Disorders: No - SURGICAL HISTORY Other/Comment: spinal fusion c5-c7 (04/12/13) - ANESTHESIA Hx Anesthesia: Yes Hx Anesthesia Reactions: No Hx Malignant Hyperthermia: No - Medical/Surgical History Reviewed & confirmed: by me Meds Allergies/Adverse Reactions: Allergies Allergy/AdvReac Type Severity Reaction Status Date / Time zolpidem [From Ambien] AdvReac Unknown .UNABLE TO Verified 08/11/18 03:20 MOVE Mental Status Examination - Personal Presentation Personal Presentation: Looks stated age - Affect Affect: Flat - Motor Activity Motor Activity: Psychomotor Retardation (Erika Vallecillo) - Reliability in Providing Information Reliability in Providing Information: Poor, due to altered mood, Poor, due to cognitve impairment (pt presented to be disengaged, withdrawn.) - Speech Speech: Organized - Mood Mood: Depressed, Anxious - Formal Thought Process Formal Thought Process: No Impairment - Obsessions/Compulsions Obsessions: None Compulsions: None - Cognitive Functions Orientation: Person, Place, Situation Sensorium: Alert Attention/Concentration: Easily distracted Estimate of Intelligence: Average Judgement: Intact, as evidence by: Insight regarding need for hospitalization - Risk Risk: Self-mutilation, Diminished functioning - Strength & Assets Inventory Strength & Assets Inventory: Cooperative - Limitations Limitations: Living alone, Other (Multiple medical issues, chronic pain) Psychiatric Physical Exam - Physical Exam Reviewed and confirmed: Emergency Department Physical Exam Results - Vital Signs Recent Vital Signs: Last Vital Signs Temp 97.6 F 08/11/18 06:34 Pulse 97 H 08/11/18 06:34 Resp 18 08/11/18 06:34 BP 108/70 08/11/18 06:34 Pulse Ox 96 08/11/18 03:42 - Labs Result Diagrams: 08/10/18 21:49 08/10/18 21:49 Labs: Laboratory Results - last 24 hr 08/10/18 08/10/18 08/10/18 21:49 21:49 21:49 WBC 9.0 RBC 4.74 Hgb 12.8 L Hct 40.1 L MCV 84.6 MCH 27.0 MCHC 31.9 RDW 15.8 H Plt Count 280 MPV 9.7 Sodium 138 Potassium 4.0 Chloride 99 Carbon Dioxide 30 Anion Gap 13 BUN 19 Creatinine 1.2 Est GFR ( Amer) > 60 Est GFR (Non-Af Amer) > 60 Random Glucose 94 Fasting Glucose Calcium 9.5 Total Bilirubin 0.4 AST 38 ALT 48 Alkaline Phosphatase 63 Total Protein 8.0 Albumin 4.6 Globulin 3.5 Albumin/Globulin Ratio 1.3 Triglycerides Cholesterol LDL Cholesterol Direct HDL Cholesterol TSH 3rd Generation Salicylates Acetaminophen Alcohol, Quantitative < 10 08/10/18 08/11/18 08/11/18 21:49 07:40 07:40 WBC RBC Hgb Hct MCV MCH MCHC RDW Plt Count MPV Sodium Potassium Chloride Carbon Dioxide Anion Gap BUN Creatinine Est GFR ( Amer) Est GFR (Non-Af Amer) Random Glucose Fasting Glucose 85 Calcium Total Bilirubin AST ALT Alkaline Phosphatase Total Protein Albumin Globulin Albumin/Globulin Ratio Triglycerides 283 H Cholesterol 221 H LDL Cholesterol Direct 143 H HDL Cholesterol 28 L TSH 3rd Generation 1.07 Salicylates < 1 L Acetaminophen < 10.0 L Alcohol, Quantitative - EKG Data EKG Interpreted by: ER Physician DSM Plan - DSM 5 DSM 5 Diagnosis: Rule out major depressive disorder Rule out mood disorder due to general medical condition Multiple medical issues - Recommended/Plan of Treatment Treatment Recommendations and Plan of Treatment: Milieu/structure/supportive therapy SW consultation for discharge plan and social issues Med management, meds were confirmed by pt's pharmacy Family involvement Medical consult was called Patient submitted 48-hour notice, will monitor for 48hrs Follow up on labs Will monitor closely Pt was educated about risk/benefits and alternatives of medications, coping strategies (safety plan, suicide prevention), relapse prevention, importance of follow up with psychiatrist and therapist, stay away from drugs/alcohol/smoking Projected ELOS: 7 days Prognosis: Guarded Discharge Plan and Discharge Criteria: Patient will pose no imminent danger to self or others - Tobacco Cessation Tobacco Use Status for the last 30 days: Heavy User(>=5 cigs &/or cigars/pipes daily) Tobacco Use Treatment Practical Counseling Provided: Yes Tobacco Use Treatment FDA-Approved Cessation Medication Provided: Yes Type of Medication Provided: Nicoderm CQ - Alcohol or Substance Abuse Does the patient have an Alcohol or Substance Abuse Disorder: Yes Initial Psych Certification - Initial Certification I certify that the inpatient psychiatric facility admission was medically necessary for either: Treatment which could reasonbly be expected to improve pt's condition I estimate of hospitalization is necessary for proper treatment of the patient: 7 Unit of Time: Days My plans for post-hospital care for this patient are: f/u with
[2018-08-11] MEDS: oxyCODONE 30 mg Immediate Release Tab PO SCH ×2 (18:05→21:37)
[2018-08-11] MEDS: Docusate-Senna 50 mg-8.6 mg Tab PO SCH (21:38)
[2018-08-12] MEDS: Pantoprazole 40 mg EC Tab PO SCH ×2 (06:25→17:07)
[2018-08-12 07:18] VITALS: RESP 20
[2018-08-12] MEDS: oxyCODONE 30 mg Immediate Release Tab PO SCH ×4 (09:15→21:29)
--- NOTE | 2018-08-12 14:12 | PCM.PYCHPN ---
Psychiatric Progress Note - Psychiatric Progress Note Patient seen today, length of contact: 30 minutes Patient Chief Complaint: "I feel little better" Problems Identified/Issues Discussed: Medications, risk/benefits/alternatives of medications, coping strategies, me dications compliance, suicide prevention, discharge planning Medical Problems: See HPI Diagnostic Results: 08/10/18 21:49 08/10/18 21:49 Lab Results 08/11/18 15:38: Urine Opiates Screen Positive H, Urine Methadone Screen Negative, Ur Barbiturates Screen Negative, Ur Phencyclidine Scrn Negative, Ur Amphetamines Screen Negative, U Benzodiazepines Scrn Positive H, U Oth Cocaine Metabols Negative, U Cannabinoids Screen Negative 08/11/18 07:40: TSH 3rd Generation 1.07 08/11/18 07:40: Fasting Glucose 85, Triglycerides 283 H, Cholesterol 221 H, LDL Cholesterol Direct 143 H, HDL Cholesterol 28 L 08/11/18 06:00: RPR Nonreactive 08/10/18 21:49: Salicylates < 1 L, Acetaminophen < 10.0 L 08/10/18 21:49: Alcohol, Quantitative < 10 08/10/18 21:49: Sodium 138, Potassium 4.0, Chloride 99, Carbon Dioxide 30, Anion Gap 13, BUN 19, Creatinine 1.2, Est GFR ( Amer) > 60, Est GFR (Non-Af Amer) > 60, Random Glucose 94, Calcium 9.5, Total Bilirubin 0.4, AST 38, ALT 48, Alkaline Phosphatase 63, Total Protein 8.0, Albumin 4.6, Globulin 3.5, Albumin/Globulin Ratio 1.3 08/10/18 21:49: WBC 9.0, RBC 4.74, Hgb 12.8 L, Hct 40.1 L, MCV 84.6, MCH 27.0, MCHC 31.9, RDW 15.8 H, Plt Count 280, MPV 9.7 Vital Signs Temp Pulse Resp BP Pulse Ox 08/12/18 09:15 115/08/12/18 09:13 08/12/18 07:17 97.6 F 93 H 20 08/11/18 16:24 132/73 08/11/18 16:23 98 H 132/73 08/11/18 16:21 98 H 132/73 05/07/19 16:20 132/73 08/11/18 16:00 98 H 132/73 08/11/18 06:34 97.6 F 97 H 18 108/70 08/11/18 03:42 98 F 90 16 118/81 96 08/10/18 21:59 88 18 159/75 H 95 08/10/18 21:00 98.7 F 95 H 18 146/96 H 97 DSM 5 Symptoms Update: Shortly patient is 42 year old male, with history of depression, multiple medical issues including but not limited to history of GI bleed, hypertension, and chronic back pain secondary to herniated disc, cancer. Initially patient presented to the emergency department complaining of depression and suicidal thoughts for the past couple of days, based on the ED report pt reported depression is from family issues and health problems, and states he is being evaluated for a lung mass. Based on the report in the emergency room, patient took extra pills of pain medication, questionable suicidal attempt. Patient requires further evaluation/observation/medication management. Patient was seen and examined today at the treatment team meeting with social work job titles, nurse, recreational therapist, mental health worker. Patient presented with improved personal hygiene, on metoprolol presented better to compare with yesterday. Patient reported that he feels depressed denies any thoughts of harming himself or others, patient reported that he has anxiety symptoms times, and feeling "overwhelming". Patient reported that he has a lot of medical issues "doctors could not figure out what causing my pain, double vision..." Patient submitted 48-hour notice, but rescinded it during the meeting. discussed with dr. Myles, patient was feeling depressed lately, overwhelmed, but never verbalized any thoughts of killing himself. As per staff patient refused physical in the unit, no aggression, no agitation, no psychosis. So far patient tolerates medications well, no side effects observed or reported, aims 0, no EPS. Impression: Rule out major depressive disorder Mood disorder due to general medical condition Medication Change: Yes (Effexor increased, Abilify increased, Seroquel discontinued) Medical Record Reviewed: Yes Consults ordered or reviewed: Medical consult appreciated Dr. Myles Mental Status Examination - Cognitive Function Orientation: Person, Place, Situation Memory: Intact Attention: Poor (Some improvement) Concentration: Poor (Some improvement) Association: WNL Fund of Knowledge: WNL - Mood Mood: Depressed ("I feel better"), Anxious - Affect Affect: Flat - Formal Thought Process Formal Thought Process: No Impairment - Suicidal Ideation Suicidal Ideation: No - Homicidal Ideation Homicidal Ideation: No Goal/Treatment Plan - Goal/Treatment Plan Need for Continued Stay: Remain at risks for inpatient hospitalization, Severe depression anxiety, Discharge may exacerbated symptoms, Severe functional impairment Progress Toward Problem(s) and Goals/Treatment Plan: Milieu/structure/supportive therapy SW consultation for discharge plan and social issues Med management, meds were confirmed by pt's pharmacy Family involvement Effexor Increased to 150+37.5 depression anxiety Seroquel discontinued Abilify was increased to 5 mg a day Patient rescinded 48-hour notice Follow up on labs Will monitor closely Pt was educated about risk/benefits and alternatives of medications, coping strategies (safety plan, suicide prevention), relapse prevention, importance of follow up with psychiatrist and therapist, stay away from drugs/alcohol/smoking Estimated Date of D/C: 08/13/18
[2018-08-12] MEDS: Docusate-Senna 50 mg-8.6 mg Tab PO SCH (21:28)
[2018-08-13] MEDS: Pantoprazole 40 mg EC Tab PO SCH (06:23)
[2018-08-13 07:21] VITALS: BP 130/83; PULSE 76; TEMP 97.3
[2018-08-13] MEDS: oxyCODONE 30 mg Immediate Release Tab PO SCH (08:26)
--- NOTE | 2018-08-14 17:50 | PCM.PYCHDC ---
Mental Status Examination - Mental Status Examination Orientation: Person, Place, Situation, Time Memory: Intact Mood: Neutral Affect: Broad Speech: Appropriate Attention: WNL Concentration: WNL Association: WNL Fund of Knowledge: WNL Formal Thought Process: No Impairment Description of patient's judgement and insight: Pt has improved insight into mental and medical illness, pt was compliant with medications and unit rules and regulations, pt was going to groups, was calm, cooperative, socially appropriate, no behavioral incidents, no agitation, no aggression. Psychotic Thoughts and Behaviors: Pt denied v/a/t hallucinations, denied paranoid ideations, pt does not appear to be psychotic, and thought process is goal directed. Suicidal Ideation: No Current Homicidal Ideation?: No Plan: pt adamantly denied thoughts of harming self or others denied intent or plan. Discharge Summary - Discharge Note Reason for Hospitalization: Patient was admitted for evaluation of depressive symptoms, possible suicidal ideation. Psychiatric History (includes Medical, Family, Personal Hx): See HPI Laboratory Data: 08/10/18 21:49 08/10/18 21:49 Lab Results 08/11/18 15:38: Urine Opiates Screen Positive H, Urine Methadone Screen Negative, Ur Barbiturates Screen Negative, Ur Phencyclidine Scrn Negative, Ur Amphetamines Screen Negative, U Benzodiazepines Scrn Positive H, U Oth Cocaine Metabols Negative, U Cannabinoids Screen Negative 08/11/18 07:40: TSH 3rd Generation 1.07 08/11/18 07:40: Fasting Glucose 85, Triglycerides 283 H, Cholesterol 221 H, LDL Cholesterol Direct 143 H, HDL Cholesterol 28 L 08/11/18 06:00: RPR Nonreactive 08/10/18 21:49: Salicylates < 1 L, Acetaminophen < 10.0 L 08/10/18 21:49: Alcohol, Quantitative < 10 08/10/18 21:49: Sodium 138, Potassium 4.0, Chloride 99, Carbon Dioxide 30, Anion Gap 13, BUN 19, Creatinine 1.2, Est GFR ( Amer) > 60, Est GFR (Non-Af Amer) > 60, Random Glucose 94, Calcium 9.5, Total Bilirubin 0.4, AST 38, ALT 48, Alkaline Phosphatase 63, Total Protein 8.0, Albumin 4.6, Globulin 3.5, Albumin/Globulin Ratio 1.3 08/10/18 21:49: WBC 9.0, RBC 4.74, Hgb 12.8 L, Hct 40.1 L, MCV 84.6, MCH 27.0, MCHC 31.9, RDW 15.8 H, Plt Count 280, MPV 9.7 Vital Signs Temp Pulse Resp BP Pulse Ox 08/13/18 08:28 130/83 08/13/18 08:27 130/83 08/13/18 07:21 97.3 F L 76 20 130/83 08/12/18 16:00 84 99/65 L 08/12/18 09:15 115/81 08/12/18 09:13 115/81 08/12/18 07:17 97.6 F 93 H 20 115/81 08/11/18 16:24 132/73 08/11/18 16:23 98 H 132/73 08/11/18 16:21 98 H 132/73 08/11/18 16:20 132/73 08/11/18 16:00 98 H 132/73 08/11/18 06:34 97.6 F 97 H 18 108/70 08/11/18 03:42 98 F 90 16 118/81 96 08/10/18 21:59 88 18 159/75 H 95 08/10/18 21:00 98.7 F 95 H 18 146/96 H 97 Consultations:: List each consultation separately and include: 1. Reason for request. 2. Findings. 3. Follow-up Consultations: Medical consult appreciated Dr. Myles see notes for more detailed information Summary of Hospital Course include:: 1. Description of specific treatment plan utilized for patients during their course of treatmen. 2. Summarize the time- course for resolution of acute symptoms and/or regressed behaviors. 3. Describe issues identified and worked on during hospitalization. 4. Describe medication utilized. 5. Describe medical problems identified and treated. 6. Reassessment of suicide risk Summary of Hospital Course: Shortly patient is 42 year old male, with history of depression, multiple medical issues including but not limited to history of GI bleed, hypertension, and chronic back pain secondary to herniated disc, cancer. Initially patient presented to the emergency department complaining of depression and suicidal thoughts for the past couple of days, based on the ED report pt reported depression is from family issues and health problems, and states he is being evaluated for a lung mass. Based on the report in the emergency room, patient took extra pills of pain medication, questionable suicidal attempt. Patient required further evaluation/observation/medication management. At the time of initial evaluation patient presented to be disengaged, depressed, had difficulty to stay focus and concentrate, patient presented with acceptable personal hygiene, fair ADLs. Patient seems to be minimizing of his symptoms, patient was not forthcoming with information about his emergency room visit circumstances. Patient reported that she was feeling depressed but not hopeless or helpless, patient denied any suicidal ideation or intent/plan. Patient initially submitted 48-hour notice requesting discharge, but patient agreed to stay for observation/ med management. patient was stabilized on the following medication: Xanax 1 mg 4 times a day as needed Abilify 5 mg daily for mood stabilization Neurontin 300 mg 3 times a day for mood stabilization Paxil was discontinued Effexor 150 mg +37.5 for depression anxiety Seroquel was discontinued Sonata 10 mg as needed for insomnia Patient tolerated medications well, no side effects observed or reported, aims 0, no EPS. Overall patient improved, no signs of agitation/aggression, patient contracted for safety, patient has follow-up appointment with Dr. Ash [facility]. At the time of the discharge patient was considered to pose no imminent danger to self or others, will be at [facility] with , information about follow up appointment, time and address provided to the pt, (see SW note for more detailed information). It is a patient responsibility to follow up with outpatient clinic, PMD as well as specialists In case patient will need to obtain results of studies pending at discharge, patient was provided with contact information of Psychiatric Inpatient unit [phone] as well as Medical Record Department [phone], as well as [facility] team [phone]. Nicotine patch was provided Patient denied using any drugs, denies alcohol consumption pt was provided with prescriptions, see medication reconciliation form, pt said he has effexor 150mg daily, asked 37.5mg only Pt was educated about safety plan in case of worsening of symptoms or in case of suicidal or homicidal ideation call 911 or go to the nearest ER, also was educated to take meds as prescribed and stay away from drugs, pt verbalized understanding. 08/10/18 21:49 08/10/18 21:49 Lab Results 08/11/18 15:38: Urine Opiates Screen Positive H, Urine Methadone Screen Negative, Ur Barbiturates Screen Negative, Ur Phencyclidine Scrn Negative, Ur Am phetamines Screen Negative, U Benzodiazepines Scrn Positive H, U Oth Cocaine Metabols Negative, U Cannabinoids Screen Negative 08/11/18 07:40: TSH 3rd Generation 1.07 08/11/18 07:40: Fasting Glucose 85, Triglycerides 283 H, Cholesterol 221 H, LDL Cholesterol Direct 143 H, HDL Cholesterol 28 L 08/11/18 06:00: RPR Nonreactive 08/10/18 21:49: Salicylates < 1 L, Acetaminophen < 10.0 L 08/10/18 21:49: Alcohol, Quantitative < 10 08/10/18 21:49: Sodium 138, Potassium 4.0, Chloride 99, Carbon Dioxide 30, Anion Gap 13, BUN 19, Creatinine 1.2, Est GFR ( Amer) > 60, Est GFR (Non-Af Amer) > 60, Random Glucose 94, Calcium 9.5, Total Bilirubin 0.4, AST 38, ALT 48, Alkaline Phosphatase 63, Total Protein 8.0, Albumin 4.6, Globulin 3.5, Albumin/Globulin Ratio 1.3 08/10/18 21:49: WBC 9.0, RBC 4.74, Hgb 12.8 L, Hct 40.1 L, MCV 84.6, MCH 27.0, MCHC 31.9, RDW 15.8 H, Plt Count 280, MPV 9.7 Vital Signs Temp Pulse Resp BP Pulse Ox 08/11/18 06:34 97.6 F 97 H 18 108/70 08/11/18 03:42 98 F 90 16 118/81 96 08/10/18 21:59 88 18 159/75 H 95 08/10/18 21:00 98.7 F 95 H 18 146/96 H 97 - Diagnosis (1) 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 with , information about follow up appointment, time and address provided to the pt, (see SW note for more detailed information). It is a patient responsibility to follow up with outpatient clinic, PMD as well as specialists In case patient will need to obtain results of studies pending at discharge, patient was provided with contact information of Psychiatric Inpatient unit [phone] as well as Medical Record Department [phone], as well as [facility] team [phone]. Nicotine patch was provided Patient denied using any drugs, denies alcohol consumption pt was provided with prescriptions, see medication reconciliation form, pt said he has effexor 150mg daily, asked 37.5mg only Pt was educated about safety plan in case of worsening of symptoms or in case of suicidal or homicidal ideation call 911 or go to the nearest ER, also was e ducated to take meds as prescribed and stay away from drugs, pt verbalized understanding. Prescriptions/Medication Reconciliation: ARIPiprazole [Abilify] 5 mg PO DAILY #7 tab Nicotine 21 mg/24 hr [Nicoderm Cq] 1 patch TD DAILY #14 patch Venlafaxine [Effexor] 37.5 mg PO DAILY #14 tab Zaleplon [Sonata] 10 mg PO HS PRN #7 cap PRN Reason: Insomnia - Smoking Cessation Smoking Cessation Medication prescribed: Yes - Antipsychotic Medications Pt discharged on 2 or more routine antipsychotic medications: No
== END 2018-08-13 11:01 | disposition home or self-care (01) | DRG 429 ==
LOC: ED 20:50 → ERH 23:29 → PSYC 08-11 01:41
PROVIDERS: ADMIT Psychologist; ATTEND Psychiatry & Neurology Psychiatry
PROC: GZ3ZZZZ Medication Management (ICD-10-PCS; principal; 2018-08-11)
DX: F06.30 Mood disorder due to known physiological condition, unspecified (principal); F32.9 Major depressive disorder, single episode, unspecified; R45.851 Suicidal ideations; G89.29 Other chronic pain; M54.9 Dorsalgia, unspecified; F41.8 Other specified anxiety disorders; I10 Essential (primary) hypertension; K21.9 Gastro-esophageal reflux disease without esophagitis; Z98.1 Arthrodesis status